=== PATIENT | female | born 1945 | race American Indian/Alaskan Native ===

== ENCOUNTER 2017-06-28 15:23 | Inpatient (IN) | payer MEDICARE, MEDICAID ==
[~2017-06-28] VITALS: Ht 167.6 cm; Wt 77.1 kg
[2017-06-28] MEDS ORDERED: normal saline 1000ml 1,000 ML IV ONE (16:30)
[2017-06-28] MEDS ORDERED: meclizine 12.5mg tablet PO ONE (16:30)
[2017-06-28 17:11] LABS: BASOPHILS % (AUTO) 0.2 % (0-1); EOSINOPHILS # (AUTO) 0.1 X10'3 (0-0.9); EOSINOPHILS % (AUTO) 0.8 % (0-6); HEMATOCRIT 39.3 % (35.0-45.0); HEMOGLOBIN 13.9 g/dl (12.0-16.0); LYMPHOCYTES # (AUTO) 1.4 X10'3 (1.1-4.8); LYMPHOCYTES % (AUTO) 19.7 % (21-51); MEAN CORPUSCULAR HEMOGLOBIN 32.6 PG (27.0-31.0); MEAN CORPUSCULAR HGB CONC 35.3 % (33.0-36.5); MEAN CORPUSCULAR VOLUME 92.2 FL (78-98); MEAN PLATELET VOLUME 9.1 FL (7.4-10.4); MONOCYTES # (AUTO) 0.3 X10'3 (0-0.9); MONOCYTES % (AUTO) 4.9 % (2-12); NEUTROPHILS # (AUTO) 5.2 X10'3 (1.8-7.7); NEUTROPHILS % (AUTO) 74.4 % (42-75); PLATELET COUNT 167 X10'3 (140-440); RED BLOOD COUNT 4.26 X10'6 (4.20-5.60); RED CELL DISTRIBUTION WIDTH 14.1 % (11.5-14.5)
[2017-06-28 17:26] LABS: ALANINE AMINOTRANSFERASE 61 U/L (12-78); ALBUMIN 4.4 G/DL (3.4-5.0); ALBUMIN/GLOBULIN RATIO 1.5 (1.1-1.5); ALKALINE PHOSPHATASE 123 IU/L (46-116); ANION GAP 11 (8-16); ASPARTATE AMINO TRANSFERASE 31 U/L (10-37); BILIRUBIN,TOTAL 0.5 MG/DL (0.1-1.0); BLOOD UREA NITROGEN 10 MG/DL (7-18); CALCIUM 9.7 MG/DL (8.5-10.1); CHLORIDE 101 MMOL/L (99-107); CREATININE 0.83 MG/DL (0.40-0.90); GLUCOSE 111 MG/DL (70-104); POTASSIUM 4.1 MMOL/L (3.5-5.1); SODIUM 138 MMOL/L (135-145); TOTAL CARBON DIOXIDE 25.7 MMOL/L (24-32); TOTAL PROTEIN 7.4 G/DL (6.4-8.2); eGFR 68 ML/MIN
[2017-06-28] MEDS ORDERED: aspirin 325mg tablet PO ONE (18:40)
[2017-06-28] MEDS ORDERED: ASPI-1265 PO ×2 (19:01→19:39)
[2017-06-28] MEDS ORDERED: CYAN100T12 PO (19:42)
[2017-06-28] MEDS ORDERED: normal saline 1000ml 1,000 ML IVB ONE (19:51)
[2017-06-28] MEDS ORDERED: HYDROcodone/acetaminophen 10/325mg tab PO PRN (19:55)
[2017-06-28] MEDS ORDERED: acetaminophen 325mg tablet PO PRN ×2 (19:55)
[2017-06-28] MEDS ORDERED: metoclopramide 5 mg/ml inj IV PRN (19:55)
[2017-06-28] MEDS ORDERED: bisacodyl 10mg suppository rectal RC PRN (19:55)
[2017-06-28] MEDS ORDERED: morphine 2 MG/ML inj. syringe IV PRN ×2 (19:55)
[2017-06-28] MEDS ORDERED: HYDROmorphone inj. 0.5 MG/0.5 ML DISP.SYRIN IV PRN ×2 (19:55)
[2017-06-28] MEDS ORDERED: magnesium hydroxide 30ml (MOM) UD suspension PO PRN (19:55)
[2017-06-28] MEDS ORDERED: HYDROcodone/acetaminophen 5mg/325mg tablet PO PRN (19:55)
[2017-06-28] MEDS ORDERED: ondansetron/PF 4mg/2ml inj IV PRN (19:55)
[2017-06-28] MEDS ORDERED: mag hydrox/Alum hydrox/simeth 30ml oral suspension PO PRN (19:55)
[2017-06-28] MEDS ORDERED: diphenhydrAMINE 50 mg/ml inj IV PRN (19:55)
[2017-06-28] MEDS: normal saline 1000ml 1,000 ML IV SCH ×2 (20:22→21:48)
[2017-06-28 20:38] LABS: D-DIMER 0.22 MG/L FEU (0-0.50); PARTIAL THROMBOPLASTIN TIME 28 SECONDS (22-32); PROTHROMBIN TIME 10.2 SECONDS (9.0-12.0)
[2017-06-28] MEDS: heparin, porcine 5000 units/ml vial SQ SCH (20:53)
[2017-06-28 20:59] LABS: HEMOGLOBIN A1C 5.8 % (4.5-6.2)
[2017-06-28 20:59] LABS: CLARITY,URINE SLIGHTLY CLOUDY (Clear); COLOR,URINE YELLOW (Yellow); GLUCOSE, URINE NEGATIVE (Neg); KETONES,URINE NEGATIVE (Neg); LEUKOCYTE ESTERASE ,URINE LARGE (Neg); NITRITES, URINE NEGATIVE (Neg); OCCULT BLOOD,URINE NEGATIVE (Neg); PROTEIN,URINE NEGATIVE (Neg); UROBILINOGEN,URINE 0.2 E.U/dL (0.2-1.0)
[2017-06-28] MEDS ORDERED: temazepam 15mg capsule PO PRN (21:00)
[2017-06-28 21:03] LABS: LIPASE 97 U/L (73-393); MAGNESIUM 2.1 MG/DL (1.5-2.4); PHOSPHORUS 3.4 MG/DL (2.3-4.5)
[2017-06-28 21:04] LABS: UA COLLECTION TYPE CLN CATCH MIDSTREAM
[2017-06-28 21:06] LABS: URINE AMPHETAMINE SCREEN NEGATIVE (Neg); URINE BARBITUATE SCREEN NEGATIVE (Neg); URINE BENZODIAZEPINES SCREEN NEGATIVE (Neg); URINE CANNABINOID SCREEN NEGATIVE (Neg); URINE COCAINE SCREEN NEGATIVE (Neg); URINE METHADONE SCREEN NEGATIVE (Neg); URINE OPIATE SCREEN NEGATIVE (Neg); URINE PHENCYCLIDINE SCREEN NEGATIVE (Neg)
[2017-06-28 21:15] LABS: SQUAMOUS EPITHELIAL CELL,UR MANY /LPF (FEW)
[2017-06-28 21:16] LABS: BACTERIA,URINE 2+ /HPF (Neg); RBC,URINE 0-2 /HPF (0-2); WBC,URINE 30-50 /HPF (0-4)
[2017-06-28 21:30] VITALS: BP 146/59
[2017-06-28] MEDS: docusate sod 100mg capsule PO SCH (21:47)
[2017-06-28] MEDS ORDERED: CefTRIAXone 2gm/NS 100ml IVPB 100 ML IV ONE (23:30)
[2017-06-29 05:21] LABS: CLARITY,URINE CLEAR (Clear); COLOR,URINE YELLOW (Yellow); GLUCOSE, URINE NEGATIVE (Neg); KETONES,URINE NEGATIVE (Neg); LEUKOCYTE ESTERASE ,URINE SMALL (Neg); NITRITES, URINE NEGATIVE (Neg); OCCULT BLOOD,URINE NEGATIVE (Neg); PH,URINE 6.5 (4.8-8.0); PROTEIN,URINE NEGATIVE (Neg); UROBILINOGEN,URINE 0.2 E.U/dL (0.2-1.0)
[2017-06-29 05:22] LABS: BASOPHILS % (AUTO) 0.3 % (0-1); EOSINOPHILS % (AUTO) 0.4 % (0-6); HEMATOCRIT 36.4 % (35.0-45.0); HEMOGLOBIN 12.6 g/dl (12.0-16.0); LYMPHOCYTES # (AUTO) 1.9 X10'3 (1.1-4.8); LYMPHOCYTES % (AUTO) 43.6 % (21-51); MEAN CORPUSCULAR HEMOGLOBIN 32.4 PG (27.0-31.0); MEAN CORPUSCULAR HGB CONC 34.7 % (33.0-36.5); MEAN CORPUSCULAR VOLUME 93.5 FL (78-98); MEAN PLATELET VOLUME 9.6 FL (7.4-10.4); MONOCYTES # (AUTO) 0.4 X10'3 (0-0.9); MONOCYTES % (AUTO) 9.4 % (2-12); NEUTROPHILS % (AUTO) 46.3 % (42-75); PLATELET COUNT 165 X10'3 (140-440); RED BLOOD COUNT 3.89 X10'6 (4.20-5.60); RED CELL DISTRIBUTION WIDTH 14.5 % (11.5-14.5); WHITE BLOOD COUNT 4.3 X10'3 (4.5-11.0)
[2017-06-29 05:38] LABS: UA COLLECTION TYPE VOIDED
[2017-06-29 05:48] LABS: BACTERIA,URINE FEW /HPF (Neg); RBC,URINE 0-2 /HPF (0-2); SQUAMOUS EPITHELIAL CELL,UR FEW /LPF (FEW); WBC,URINE 0-4 /HPF (0-4)
[2017-06-29 06:00] VITALS: BP 137/65
[2017-06-29 06:32] LABS: ALANINE AMINOTRANSFERASE 51 U/L (12-78); ALBUMIN 3.4 G/DL (3.4-5.0); ALBUMIN/GLOBULIN RATIO 1.2 (1.1-1.5); ALKALINE PHOSPHATASE 106 IU/L (46-116); ANION GAP 10 (8-16); ASPARTATE AMINO TRANSFERASE 27 U/L (10-37); BILIRUBIN,TOTAL 0.4 MG/DL (0.1-1.0); BLOOD UREA NITROGEN 8 MG/DL (7-18); BUN/CREATININE RATIO 9.5 (6.6-38.0); CALCIUM 8.7 MG/DL (8.5-10.1); CHLORIDE 110 MMOL/L (99-107); CHOL/HDL RATIO 7.5 (0.00-4.99); CHOLESTEROL 231 MG/DL (0-200); CREATININE 0.84 MG/DL (0.40-0.90); GLUCOSE 106 MG/DL (70-104); HDL CHOLESTEROL 31 MG/DL (35-60); LDL CHOLESTEROL 143 MG/DL (50-100); SODIUM 144 MMOL/L (135-145); TOTAL CARBON DIOXIDE 24.3 MMOL/L (24-32); TOTAL PROTEIN 6.3 G/DL (6.4-8.2); TRIGLYCERIDES 278 MG/DL (20-135); eGFR 67 ML/MIN
[2017-06-29] MEDS: lisinopril 10 MG tablet PO SCH (07:19)
[2017-06-29] MEDS: aspirin 81mg tab.chew PO SCH (07:19)
[2017-06-29] MEDS: heparin, porcine 5000 units/ml vial SQ SCH ×2 (07:21→20:21)
[2017-06-29] MEDS: docusate sod 100mg capsule PO SCH ×2 (07:25→20:00)
[2017-06-29 10:00] VITALS: BP_SYST 133; BP_SYST 140; BP_SYST 148; BP_DIAS 63; BP_DIAS 64
[2017-06-29] MEDS: normal saline 1000ml 1,000 ML IV SCH ×2 (10:09→23:58)
[2017-06-29] MEDS ORDERED: iohexol 350MG/ML 100ml bottle IV ONE (17:05)
[2017-06-29] MEDS: cyanocobalamin 500mcg tablet PO SCH (17:47)
[2017-06-29 18:00] VITALS: BP 137/64
[2017-06-29 20:00] VITALS: BP_SYST 146; BP_SYST 164; BP_SYST 182; BP_DIAS 62; BP_DIAS 72; BP_DIAS 76
[2017-06-29 22:00] VITALS: BP 164/62
[2017-06-30 05:00] VITALS: BP 125/59
[2017-06-30 06:23] LABS: BASOPHILS % (AUTO) 0.1 % (0-1); EOSINOPHILS % (AUTO) 0.3 % (0-6); HEMOGLOBIN 12.7 g/dl (12.0-16.0); LYMPHOCYTES # (AUTO) 1.9 X10'3 (1.1-4.8); LYMPHOCYTES % (AUTO) 53.1 % (21-51); MEAN CORPUSCULAR HEMOGLOBIN 32.4 PG (27.0-31.0); MEAN CORPUSCULAR HGB CONC 35.2 % (33.0-36.5); MEAN PLATELET VOLUME 9.8 FL (7.4-10.4); MONOCYTES # (AUTO) 0.3 X10'3 (0-0.9); MONOCYTES % (AUTO) 8.7 % (2-12); NEUTROPHILS # (AUTO) 1.3 X10'3 (1.8-7.7); NEUTROPHILS % (AUTO) 37.8 % (42-75); PLATELET COUNT 147 X10'3 (140-440); RED BLOOD COUNT 3.92 X10'6 (4.20-5.60); RED CELL DISTRIBUTION WIDTH 14.4 % (11.5-14.5); WHITE BLOOD COUNT 3.6 X10'3 (4.5-11.0)
[2017-06-30 07:19] LABS: ALANINE AMINOTRANSFERASE 49 U/L (12-78); ALBUMIN 3.3 G/DL (3.4-5.0); ALBUMIN/GLOBULIN RATIO 1.1 (1.1-1.5); ALKALINE PHOSPHATASE 105 IU/L (46-116); ANION GAP 11 (8-16); ASPARTATE AMINO TRANSFERASE 25 U/L (10-37); BILIRUBIN,TOTAL 0.3 MG/DL (0.1-1.0); BLOOD UREA NITROGEN 10 MG/DL (7-18); BUN/CREATININE RATIO 11.8 (6.6-38.0); CALCIUM 8.9 MG/DL (8.5-10.1); CHLORIDE 108 MMOL/L (99-107); CREATININE 0.85 MG/DL (0.40-0.90); GLUCOSE 107 MG/DL (70-104); POTASSIUM 3.7 MMOL/L (3.5-5.1); SODIUM 145 MMOL/L (135-145); TOTAL CARBON DIOXIDE 25.9 MMOL/L (24-32); TOTAL PROTEIN 6.2 G/DL (6.4-8.2); eGFR 66 ML/MIN
[2017-06-30] MEDS: aspirin 81mg tab.chew PO SCH (07:58)
[2017-06-30] MEDS: lisinopril 10 MG tablet PO SCH (07:58)
[2017-06-30] MEDS: heparin, porcine 5000 units/ml vial SQ SCH (07:58)
[2017-06-30] MEDS: cyanocobalamin 500mcg tablet PO SCH (07:58)
[2017-06-30 07:59] VITALS: BP 145/69
[2017-06-30] MEDS: docusate sod 100mg capsule PO SCH (07:59)
[2017-06-30] MEDS: normal saline 1000ml 1,000 ML IV SCH (08:00)
[2017-06-30 10:00] VITALS: BP 137/62
[2017-06-30] MEDS ORDERED: pneumococcal 23-VAL P-sac vacc 25 mcg/0.5ml vial IMVAC ONE (10:00)
[2017-06-30 10:15] VITALS: BP_SYST 117; BP_SYST 132; BP_DIAS 59; BP_DIAS 62
[2017-06-30 10:17] VITALS: BP 143/68
[2017-06-30] MEDS ORDERED: LISI10TA4 PO (14:01)
[2017-06-30] MEDS ORDERED: ATOR40TA PO (14:01)
[2017-06-30] MEDS ORDERED: ASPI-1265 PO (14:01)
[2017-06-30] MEDS ORDERED: CIPR-230 PO (14:23)
== END 2017-06-30 15:19 | disposition home or self-care (01) | DRG 312 ==
LOC: ER 15:24 → ED HOLD 19:52 → ORTHO 4S 21:10
PROVIDERS: ADMIT Family Medicine; ATTEND Internal Medicine
PROC: B3251ZZ Computerized Tomography (CT Scan) of Bilateral Common Carotid Arteries using Low Osmolar Contrast (ICD-10-PCS; principal; 2017-06-29)
PROC: B32G1ZZ Computerized Tomography (CT Scan) of Bilateral Vertebral Arteries using Low Osmolar Contrast (ICD-10-PCS; 2017-06-29)
PROC: B3281ZZ Computerized Tomography (CT Scan) of Bilateral Internal Carotid Arteries using Low Osmolar Contrast (ICD-10-PCS; 2017-06-29)
DX: R55 Syncope and collapse (principal); E86.0 Dehydration; I10 Essential (primary) hypertension; R42 Dizziness and giddiness; R73.03 Prediabetes; Z79.82 Long term (current) use of aspirin; Z79.899 Other long term (current) drug therapy; Z86.73 Personal history of transient ischemic attack (TIA), and cerebral infarction without residual deficits
CPT/HCPCS: 36415; 70450; 70498; 70551; 71045; 80053; 80061; 80305; 81001; 83036; 83690; 83735; 83880; 84100; 84443; 84484; 85025; 85379; 85610; 85730; 87070; 87088; 93005; 93306; 93880; 96360; 99285; J0696; J1644; J7030; J8597; Q9967

== ENCOUNTER 2019-05-26 05:47 | Emergency (ER) | payer MEDICARE, MEDICAID, OTHER ==
[~2019-05-26] VITALS: Ht 167.6 cm; Wt 76.7 kg
[~2019-05-26 05:47] MED LIST: ASPI-1265 PO; ATOR40TA PO; CYAN100T45 PO; LISI10TA4 PO
[2019-05-26 06:17] LABS: CLARITY,URINE CLOUDY (Clear); COLOR,URINE YELLOW (Yellow); GLUCOSE, URINE NEGATIVE (Neg); KETONES,URINE NEGATIVE (Neg); LEUKOCYTE ESTERASE ,URINE MODERATE (Neg); NITRITES, URINE NEGATIVE (Neg); OCCULT BLOOD,URINE NEGATIVE (Neg); PH,URINE 8.5 (4.8-8.0); PROTEIN,URINE NEGATIVE (Neg); UROBILINOGEN,URINE 0.2 E.U/dL (0.2-1.0)
[2019-05-26 06:20] LABS: UA COLLECTION TYPE CLN CATCH MIDSTREAM
[2019-05-26 06:23] LABS: MUCUS STRANDS FEW /LPF (Neg); SQUAMOUS EPITHELIAL CELL,UR MANY /LPF (FEW); WBC,URINE 30-50 /HPF (0-4)
[2019-05-26 06:25] LABS: BACTERIA,URINE 1+ /HPF (Neg); RBC,URINE 0-2 /HPF (0-2); WBC CLUMPS,URINE MODERATE /HPF (NEGATIVE)
[2019-05-26] MEDS ORDERED: normal saline 1000ML IV soln IVB ONE (06:40)
[2019-05-26] MEDS ORDERED: ketorolac tromethamine 15mg/ml inj. IV ONE (06:40)
[2019-05-26] MEDS ORDERED: CefTRIAXone/D5W-Rocephin 1gm 50 ML IV ONE (06:40)
[2019-05-26] MEDS ORDERED: PHEN-824 PO (06:43)
[2019-05-26] MEDS ORDERED: CEPH500C5 PO (06:43)
[2019-05-26] MEDS ORDERED: phenazopyridine 100mg tablet PO ONE (06:45)
[2019-05-26 07:34] LABS: BASOPHILS % (AUTO) 0.5 % (0-1); EOSINOPHILS % (AUTO) 0 % (0-6); HEMATOCRIT 40.3 % (35.0-45.0); HEMOGLOBIN 13.9 g/dl (12.0-16.0); LYMPHOCYTES # (AUTO) 1.7 X10'3 (1.1-4.8); LYMPHOCYTES % (AUTO) 35.2 % (21-51); MEAN CORPUSCULAR HEMOGLOBIN 32.3 PG (27.0-31.0); MEAN CORPUSCULAR HGB CONC 34.4 g/dL (33.0-36.5); MEAN CORPUSCULAR VOLUME 93.8 FL (78-98); MEAN PLATELET VOLUME 10.3 FL (7.4-10.4); MONOCYTES # (AUTO) 0.4 X10'3 (0-0.9); MONOCYTES % (AUTO) 8.1 % (2-12); NEUTROPHILS # (AUTO) 2.8 X10'3 (1.8-7.7); NEUTROPHILS % (AUTO) 56.2 % (42-75); PLATELET COUNT 159 X10'3 (140-440); RED CELL DISTRIBUTION WIDTH 13.7 % (11.5-14.5); WHITE BLOOD COUNT 4.9 X10'3 (4.5-11.0)
[2019-05-26 07:42] LABS: ALANINE AMINOTRANSFERASE 45 U/L (12-78); ALBUMIN 4.2 G/DL (3.4-5.0); ALBUMIN/GLOBULIN RATIO 1.4 (1.1-1.5); ALKALINE PHOSPHATASE 137 IU/L (46-116); ANION GAP 10 (8-16); ASPARTATE AMINO TRANSFERASE 25 U/L (10-37); BILIRUBIN,TOTAL 0.3 MG/DL (0.1-1.0); BLOOD UREA NITROGEN 10 MG/DL (7-18); BUN/CREATININE RATIO 11.5 (6.6-38.0); CALCIUM 9.6 MG/DL (8.5-10.1); CHLORIDE 103 MMOL/L (99-107); CREATININE 0.87 MG/DL (0.40-0.90); GLUCOSE 115 MG/DL (70-104); POTASSIUM 4.3 MMOL/L (3.5-5.1); SODIUM 139 MMOL/L (135-145); TOTAL CARBON DIOXIDE 25.6 MMOL/L (24-32); TOTAL PROTEIN 7.2 G/DL (6.4-8.2); eGFR 64 ML/MIN
[2019-05-26 07:52] VITALS: BP 134/76
== END 2019-05-26 08:45 | disposition home or self-care (01) ==
LOC: ER 05:48
DX: N39.0 Urinary tract infection, site not specified (principal); Z79.82 Long term (current) use of aspirin; Z79.899 Other long term (current) drug therapy
CPT/HCPCS: 36415; 80053; 81001; 85025; 96365; 96375; 99283; J0696; J1885; J7030

== ENCOUNTER 2021-05-13 09:33 | Emergency (ER) | payer MEDICARE, MEDICAID ==
[~2021-05-13] VITALS: Ht 165.1 cm; Wt 75.0 kg
[~2021-05-13 09:33] MED LIST changes: +LISI10TA27 PO; -LISI10TA4 PO; +PHEN-824 PO
[2021-05-13] MEDS ORDERED: CASIRIVIMAB/IMDEVIMAB (REGEN-COV) 600mg/600mg inject. SQ ONE ×4 (09:56→10:00)
[2021-05-13] MEDS ORDERED: dexamethasone 0.5 mg/5ml unit-dose oral solution PO STA (11:12)
[2021-05-13] MEDS ORDERED: DEXAMETHASONE 6 MG TABLET PO STA (11:16)
[2021-05-13 11:43] VITALS: BP 119/63
== END 2021-05-13 11:40 | disposition home or self-care (01) ==
LOC: ER 09:33
DX: U07.1 COVID-19 (principal); R52 Pain, unspecified; Z87.440 Personal history of urinary (tract) infections; Z79.82 Long term (current) use of aspirin; Z79.899 Other long term (current) drug therapy
CPT/HCPCS: 71045; 99285; M0243; Q0244; 99284; J8540

== ENCOUNTER 2021-05-18 06:25 | Emergency (ER) | payer MEDICARE, MEDICAID ==
[~2021-05-18] VITALS: Ht 167.6 cm; Wt 72.7 kg
[2021-05-18 06:43] VITALS: BP 141/63
[2021-05-18] MEDS ORDERED: dexmedetomidine 200mcg/2ml inj. IV ONE (06:59)
[2021-05-18] MEDS ORDERED: DEXA6TAB6 PO ×2 (07:29→08:41)
[2021-05-18] MEDS ORDERED: DEXAMETHASONE 6 MG TABLET PO ONE (07:30)
[2021-05-18] MEDS ORDERED: dexamethasone 4mg tablet PO ONE (07:30)
[2021-05-19] MEDS ORDERED: DEXA6TAB PO (18:20)
== END 2021-05-18 08:49 | disposition home or self-care (01) ==
LOC: ER 06:26
DX: U07.1 COVID-19 (principal); J12.82 Pneumonia due to coronavirus disease 2019; R05.9 Cough, unspecified; R50.9 Fever, unspecified; R43.8 Other disturbances of smell and taste; Z87.440 Personal history of urinary (tract) infections; Z98.890 Other specified postprocedural states; Z79.899 Other long term (current) drug therapy
CPT/HCPCS: 71045; 87635; 93005; 99285; C9803; J3490; J8540

== ENCOUNTER 2021-05-19 16:50 | Inpatient (IN) | payer MEDICARE, OTHER ==
[~2021-05-19] VITALS: Ht 167.6 cm; Wt 76.0 kg
[~2021-05-19 16:50] MED LIST changes: -ASPI-1265 PO; -ATOR40TA PO; -CYAN100T45 PO; +DEXA6TAB6 PO; -LISI10TA27 PO; -PHEN-824 PO
[2021-05-19] MEDS ORDERED: dexamethasone sod phosphate 10mg/ml inj IV STA (17:30)
[2021-05-19 17:45] LABS: BASOPHILS % (AUTO) 0.1 % (0-1); EOSINOPHILS % (AUTO) 0 % (0-6); HEMATOCRIT 34.9 % (35.0-45.0); HEMOGLOBIN 12.1 g/dl (12.0-16.0); LYMPHOCYTES # (AUTO) 0.5 X10'3 (1.1-4.8); LYMPHOCYTES % (AUTO) 3.4 % (21-51); MEAN CORPUSCULAR HEMOGLOBIN 31.6 PG (27.0-31.0); MEAN CORPUSCULAR HGB CONC 34.7 g/dL (33.0-36.5); MEAN CORPUSCULAR VOLUME 91.1 FL (78-98); MEAN PLATELET VOLUME 9.5 FL (7.4-10.4); MONOCYTES # (AUTO) 0.5 X10'3 (0-0.9); MONOCYTES % (AUTO) 3.4 % (2-12); NEUTROPHILS # (AUTO) 14.6 X10'3 (1.8-7.7); NEUTROPHILS % (AUTO) 93.1 % (42-75); PLATELET COUNT 208 X10'3 (140-440); RED BLOOD COUNT 3.83 X10'6 (4.20-5.60); RED CELL DISTRIBUTION WIDTH 13.4 % (11.5-14.5); WHITE BLOOD COUNT 15.7 X10'3 (4.5-11.0)
[2021-05-19 18:06] LABS: ALANINE AMINOTRANSFERASE 37 U/L (12-78); ALBUMIN 3.2 G/DL (3.4-5.0); ALBUMIN/GLOBULIN RATIO 0.8 (1.1-1.5); ALKALINE PHOSPHATASE 105 IU/L (46-116); ANION GAP 8 (8-16); ASPARTATE AMINO TRANSFERASE 24 U/L (10-37); BILIRUBIN,TOTAL 0.4 MG/DL (0.1-1.0); BLOOD UREA NITROGEN 14 MG/DL (7-18); BUN/CREATININE RATIO 16.9 (6.6-38.0); C-REACTIVE PROTEIN 12.19 MG/DL (0.0-0.5); CALCIUM 9.8 MG/DL (8.5-10.1); CHLORIDE 88 MMOL/L (99-107); CREATININE 0.83 MG/DL (0.40-0.90); FERRITIN 304 NG/ML (8-252); GLUCOSE 151 MG/DL (70-104); LACTATE DEHYDROGENASE 313 U/L (81-234); POTASSIUM 4.8 MMOL/L (3.5-5.1); TOTAL CARBON DIOXIDE 23.2 MMOL/L (24-32); TOTAL PROTEIN 7.1 G/DL (6.4-8.2); eGFR 67 ML/MIN
[2021-05-19 18:10] LABS: SODIUM 119 MMOL/L (135-145)
[2021-05-19] MEDS ORDERED: DEXA6TAB PO (18:20)
[2021-05-19] MEDS ORDERED: mag hydrox/Alum hydrox/simeth 30ml oral suspension PO PRN (18:35)
[2021-05-19] MEDS ORDERED: REMDESIVIR INJ 200 MG in normal saline 100ml IV soln 100 ML IV ONE ×2 (18:35→19:30)
[2021-05-19] MEDS ORDERED: ALBUTEROL INHALER 1 PUFF/90 MCG INHALER IH PRN (18:35)
[2021-05-19] MEDS ORDERED: potassium CL 10mEq/100ml bag 100 ML IV PRN (18:35)
[2021-05-19] MEDS ORDERED: magnesium 4gm in 100ml NS 100 ML IV PRN (18:35)
[2021-05-19] MEDS ORDERED: acetaminophen 325mg tablet PO PRN (18:35)
[2021-05-19] MEDS ORDERED: magnesium 2GM in 50ml NS 50 ML IV PRN (18:35)
[2021-05-19] MEDS ORDERED: potassium Cl 20 mEq SR tablet PO PRN ×2 (18:35)
[2021-05-19 19:05] LABS: D-DIMER 0.32 MG/L FEU (0-0.50)
--- NOTE | 2021-05-19 19:30 | NUR ---
Placed in room 12.
[2021-05-19] MEDS: docusate sod 100mg capsule PO SCH (20:00)
[2021-05-19] MEDS ORDERED: enoxaparin 40mg/0.4ml syringe SQ SCH (20:00)
--- NOTE | 2021-05-19 21:25 | NUR ---
Report given to PATIENCE Ferraro.
[2021-05-19 22:00] VITALS: BP 166/72
[2021-05-19] MEDS: normal saline 1000ml 1,000 ML IV SCH (22:05)
[2021-05-19] MEDS: K and/or MAG REPLACEMENT MC SCH (23:00)
[2021-05-19] MEDS: guaiFENesin/codeine phos 10ml UD oral syrup PO PRN (23:32)
[2021-05-19] MEDS: ondansetron/PF 4mg/2ml inj IV PRN (23:42)
[2021-05-19] MEDS: dexamethasone inj 6 MG in dextrose 5%-water 100 ML IV SCH (23:47)
[2021-05-20 02:00] VITALS: BP 135/63
--- NOTE | 2021-05-20 02:44 | NUR ---
pt used her call light for help to the bathroom and by the time I had gowned up she ambulated to the BR on her own without oxygen and was coughing quite a bit and winded with breathing. I applied portable oxygen on her and educated her to not get up to the bathroom or anywhere without oxygen and that she needs to use the bsc to conserve her strength and oxygen demand.
[2021-05-20 06:00] VITALS: BP 130/59
--- NOTE | 2021-05-20 06:30 | NUR ---
Change of shift report given to Nithya MORIN Addendum: 05/20/21 at 0635 by Jasmine Conti RN Amended: Links added.
[2021-05-20] MEDS: K and/or MAG REPLACEMENT MC SCH ×2 (08:00→19:43)
[2021-05-20 08:12] LABS: BASOPHILS % (AUTO) 0 % (0-1); EOSINOPHILS % (AUTO) 0 % (0-6); HEMATOCRIT 36.4 % (35.0-45.0); HEMOGLOBIN 12.6 g/dl (12.0-16.0); LYMPHOCYTES # (AUTO) 0.5 X10'3 (1.1-4.8); LYMPHOCYTES % (AUTO) 3.3 % (21-51); MEAN CORPUSCULAR HEMOGLOBIN 31.8 PG (27.0-31.0); MEAN CORPUSCULAR HGB CONC 34.6 g/dL (33.0-36.5); MEAN CORPUSCULAR VOLUME 91.9 FL (78-98); MEAN PLATELET VOLUME 9.5 FL (7.4-10.4); MONOCYTES # (AUTO) 0.6 X10'3 (0-0.9); NEUTROPHILS # (AUTO) 13.2 X10'3 (1.8-7.7); NEUTROPHILS % (AUTO) 92.7 % (42-75); PLATELET COUNT 224 X10'3 (140-440); RED BLOOD COUNT 3.96 X10'6 (4.20-5.60); RED CELL DISTRIBUTION WIDTH 13.3 % (11.5-14.5); WHITE BLOOD COUNT 14.3 X10'3 (4.5-11.0)
[2021-05-20] MEDS: REMDESIVIR INJ 100 MG in normal saline 100ml IV soln 100 ML IV SCH (08:29)
[2021-05-20] MEDS: enoxaparin 40mg/0.4ml syringe SQ SCH (08:30)
[2021-05-20] MEDS: dexamethasone inj 6 MG in dextrose 5%-water 100 ML IV SCH ×2 (08:30→20:31)
[2021-05-20] MEDS: docusate sod 100mg capsule PO SCH ×2 (08:32→20:31)
[2021-05-20 09:09] LABS: ALANINE AMINOTRANSFERASE 35 U/L (12-78); ALBUMIN 2.9 G/DL (3.4-5.0); ALBUMIN/GLOBULIN RATIO 0.8 (1.1-1.5); ALKALINE PHOSPHATASE 94 IU/L (46-116); ANION GAP 8 (8-16); ASPARTATE AMINO TRANSFERASE 28 U/L (10-37); BILIRUBIN,TOTAL 0.4 MG/DL (0.1-1.0); BLOOD UREA NITROGEN 12 MG/DL (7-18); BUN/CREATININE RATIO 15.6 (6.6-38.0); CALCIUM 9.4 MG/DL (8.5-10.1); CHLORIDE 96 MMOL/L (99-107); CREATININE 0.77 MG/DL (0.40-0.90); GLUCOSE 124 MG/DL (70-104); MAGNESIUM 2.1 MG/DL (1.5-2.4); POTASSIUM 4.7 MMOL/L (3.5-5.1); SODIUM 129 MMOL/L (135-145); TOTAL CARBON DIOXIDE 24.6 MMOL/L (24-32); TOTAL PROTEIN 6.6 G/DL (6.4-8.2); eGFR 73 ML/MIN
[2021-05-20 10:00] VITALS: BP 130/61
[2021-05-20] MEDS: normal saline 1000ml 1,000 ML IV SCH ×3 (12:34→22:40)
[2021-05-20] MEDS: guaiFENesin/codeine phos 10ml UD oral syrup PO PRN (16:46)
[2021-05-20 18:00] VITALS: BP 136/61
[2021-05-20 20:19] LABS: D-DIMER 0.32 MG/L FEU (0-0.50)
[2021-05-20] MEDS: LORazepam 0.5 MG tablet PO PRN (21:18)
[2021-05-20 22:00] VITALS: BP 120/60
[2021-05-21 02:00] VITALS: BP 126/66
[2021-05-21] MEDS: guaiFENesin/codeine phos 10ml UD oral syrup PO PRN ×2 (02:13→19:55)
--- NOTE | 2021-05-21 02:34 | NUR ---
Patient was not compensating after using the bsc and having a coughing fit. She was 82-83% on 10 liters high flow so I increased her in increments up to 15 liters high flow oxygen and then had to add 15 liters NRB mask and now her oxygen saturation is 93%.
--- NOTE | 2021-05-21 02:41 | NUR ---
I called Dr. Alston to inform him that I had to increase pt's oxygen from 10 liters high flow to 15 liters high flow and then also added a 15 liters NRB mask to get her from 82% to 90-93% spo2. Will also notify RT.
--- NOTE | 2021-05-21 05:30 | NUR ---
O2 sats 92%-94% on 15L high flow and 15L NRB while resting. Highest is 94% briefly but mostly at 92%
[2021-05-21 06:00] VITALS: BP 135/63
--- NOTE | 2021-05-21 06:43 | NUR ---
Change of shift report given to Marisela MORIN Addendum: 05/21/21 at 0644 by Jasmine Conti RN Amended: Links added.
--- NOTE | 2021-05-21 06:57 | NUR ---
Patient in room [facility] 4020A. I have received report from PATIENCE MOREIRA and had the opportunity to ask questions and assume patient care.
[2021-05-21] MEDS: dexamethasone inj 6 MG in dextrose 5%-water 100 ML IV SCH ×2 (07:45→19:54)
[2021-05-21] MEDS: docusate sod 100mg capsule PO SCH ×2 (07:48→19:54)
[2021-05-21] MEDS: enoxaparin 40mg/0.4ml syringe SQ SCH (07:49)
[2021-05-21] MEDS: REMDESIVIR INJ 100 MG in normal saline 100ml IV soln 100 ML IV SCH (07:51)
[2021-05-21 07:59] LABS: BASOPHILS % (AUTO) 0 % (0-1); EOSINOPHILS % (AUTO) 0 % (0-6); HEMATOCRIT 35.3 % (35.0-45.0); HEMOGLOBIN 11.9 g/dl (12.0-16.0); LYMPHOCYTES # (AUTO) 0.7 X10'3 (1.1-4.8); LYMPHOCYTES % (AUTO) 5.6 % (21-51); MEAN CORPUSCULAR HEMOGLOBIN 31.4 PG (27.0-31.0); MEAN CORPUSCULAR HGB CONC 33.6 g/dL (33.0-36.5); MEAN CORPUSCULAR VOLUME 93.4 FL (78-98); MEAN PLATELET VOLUME 9.5 FL (7.4-10.4); MONOCYTES # (AUTO) 0.5 X10'3 (0-0.9); MONOCYTES % (AUTO) 4.4 % (2-12); NEUTROPHILS # (AUTO) 11.2 X10'3 (1.8-7.7); PLATELET COUNT 228 X10'3 (140-440); RED BLOOD COUNT 3.78 X10'6 (4.20-5.60); RED CELL DISTRIBUTION WIDTH 13.9 % (11.5-14.5); WHITE BLOOD COUNT 12.5 X10'3 (4.5-11.0)
[2021-05-21] MEDS: K and/or MAG REPLACEMENT MC SCH ×2 (08:00→20:00)
[2021-05-21 08:06] LABS: D-DIMER 0.49 MG/L FEU (0-0.50)
[2021-05-21 08:14] LABS: ALANINE AMINOTRANSFERASE 33 U/L (12-78); ALBUMIN 2.5 G/DL (3.4-5.0); ALBUMIN/GLOBULIN RATIO 0.7 (1.1-1.5); ALKALINE PHOSPHATASE 85 IU/L (46-116); ANION GAP 6 (8-16); ASPARTATE AMINO TRANSFERASE 22 U/L (10-37); BILIRUBIN,TOTAL 0.3 MG/DL (0.1-1.0); BLOOD UREA NITROGEN 14 MG/DL (7-18); BUN/CREATININE RATIO 20.6 (6.6-38.0); C-REACTIVE PROTEIN 10.36 MG/DL (0.0-0.5); CALCIUM 8.8 MG/DL (8.5-10.1); CHLORIDE 104 MMOL/L (99-107); CREATININE 0.68 MG/DL (0.40-0.90); GLUCOSE 124 MG/DL (70-104); MAGNESIUM 2.3 MG/DL (1.5-2.4); POTASSIUM 4.6 MMOL/L (3.5-5.1); SODIUM 135 MMOL/L (135-145); TOTAL CARBON DIOXIDE 24.9 MMOL/L (24-32); TOTAL PROTEIN 6.3 G/DL (6.4-8.2); eGFR 84 ML/MIN
[2021-05-21 10:00] VITALS: BP 144/63
[2021-05-21] MEDS: normal saline 1000ml 1,000 ML IV SCH ×2 (11:18→20:49)
[2021-05-21 14:00] VITALS: BP 154/72
[2021-05-21 18:00] VITALS: BP 135/63
--- NOTE | 2021-05-21 18:30 | NUR ---
Pt in bed awake alert and oriented, denied any discomfort. pt encouraged to keep oxygen on at all time; pt verbalized understanding. IV fluid infusing well. continuous oxygen monitoring in progress.
--- NOTE | 2021-05-21 18:45 | NUR ---
Problems reprioritized. Patient report given, questions answered & plan of care reviewed with PATIENCE Gómez.
[2021-05-21] MEDS: LORazepam 0.5 MG tablet PO PRN (19:56)
[2021-05-21] MEDS: magnesium hydroxide 30ml (MOM) UD suspension PO PRN (20:05)
[2021-05-21 22:00] VITALS: BP 161/76
--- NOTE | 2021-05-21 22:00 | NUR ---
Pt placed on bedpan and voided good amount of urine, pt encouraged to call for assistance as needed when feeling the urge to void
[2021-05-22] MEDS: guaiFENesin/codeine phos 10ml UD oral syrup PO PRN (00:32)
[2021-05-22 02:00] VITALS: BP 156/69
--- NOTE | 2021-05-22 02:00 | NUR ---
Pt desaturating at time;o2 sat 88%. Frequent rounding in progress NRM in use. dried flow not wet.
[2021-05-22] MEDS: normal saline 1000ml 1,000 ML IV SCH ×2 (05:20→19:02)
[2021-05-22 06:00] VITALS: BP 156/73
--- NOTE | 2021-05-22 06:35 | NUR ---
Patient in room [facility]TH[facility] 4022A. I have received report from PATIENCE Gómez and had the opportunity to ask questions and assume patient care.
[2021-05-22 07:55] LABS: BASOPHILS % (AUTO) 0 % (0-1); EOSINOPHILS % (AUTO) 0 % (0-6); HEMATOCRIT 37.8 % (35.0-45.0); LYMPHOCYTES # (AUTO) 0.8 X10'3 (1.1-4.8); LYMPHOCYTES % (AUTO) 6.2 % (21-51); MEAN CORPUSCULAR HEMOGLOBIN 31.8 PG (27.0-31.0); MEAN CORPUSCULAR HGB CONC 34.3 g/dL (33.0-36.5); MEAN CORPUSCULAR VOLUME 92.7 FL (78-98); MEAN PLATELET VOLUME 8.8 FL (7.4-10.4); MONOCYTES # (AUTO) 0.3 X10'3 (0-0.9); MONOCYTES % (AUTO) 2.2 % (2-12); NEUTROPHILS # (AUTO) 11.4 X10'3 (1.8-7.7); NEUTROPHILS % (AUTO) 91.6 % (42-75); PLATELET COUNT 245 X10'3 (140-440); RED BLOOD COUNT 4.07 X10'6 (4.20-5.60); RED CELL DISTRIBUTION WIDTH 13.7 % (11.5-14.5); WHITE BLOOD COUNT 12.4 X10'3 (4.5-11.0)
[2021-05-22] MEDS: K and/or MAG REPLACEMENT MC SCH ×2 (08:00→19:03)
[2021-05-22 08:12] LABS: D-DIMER 2.39 MG/L FEU (0-0.50)
[2021-05-22 08:51] LABS: ALBUMIN 2.5 G/DL (3.4-5.0); ANION GAP 8 (8-16); BILIRUBIN,TOTAL 0.5 MG/DL (0.1-1.0); BLOOD UREA NITROGEN 12 MG/DL (7-18); BUN/CREATININE RATIO 18.2 (6.6-38.0); C-REACTIVE PROTEIN 12.23 MG/DL (0.0-0.5); CALCIUM 8.9 MG/DL (8.5-10.1); CHLORIDE 100 MMOL/L (99-107); CREATININE 0.66 MG/DL (0.40-0.90); GLUCOSE 112 MG/DL (70-104); MAGNESIUM 2.3 MG/DL (1.5-2.4); SODIUM 134 MMOL/L (135-145); TOTAL CARBON DIOXIDE 26.2 MMOL/L (24-32); TOTAL PROTEIN 6.5 G/DL (6.4-8.2); eGFR 87 ML/MIN
[2021-05-22 08:52] LABS: ALANINE AMINOTRANSFERASE 30 U/L (12-78); ALBUMIN/GLOBULIN RATIO 0.6 (1.1-1.5); ALKALINE PHOSPHATASE 89 IU/L (46-116)
[2021-05-22 08:53] LABS: ASPARTATE AMINO TRANSFERASE 33 U/L (10-37); POTASSIUM 4.8 MMOL/L (3.5-5.1)
[2021-05-22] MEDS: dexamethasone inj 6 MG in dextrose 5%-water 100 ML IV SCH ×2 (09:47→19:03)
[2021-05-22] MEDS: benzonatate 100mg capsule PO PRN (09:48)
[2021-05-22] MEDS: enoxaparin 40mg/0.4ml syringe SQ SCH ×2 (09:49→19:04)
[2021-05-22] MEDS: docusate sod 100mg capsule PO SCH ×2 (09:49→19:03)
[2021-05-22] MEDS: REMDESIVIR INJ 100 MG in normal saline 100ml IV soln 100 ML IV SCH (09:51)
[2021-05-22 10:00] VITALS: BP 155/68
[2021-05-22] MEDS ORDERED: NORMAL SALINE IV ONE (13:00)
[2021-05-22] MEDS ORDERED: TOCILIZUMAB IV ONE (13:00)
[2021-05-22 18:00] VITALS: BP 109/83
--- NOTE | 2021-05-22 18:41 | NUR ---
CRYSTAL THOMAS FOR THE 2ND TIME REQUESTING STAT ABG Addendum: 05/23/21 at 0616 by Marisela Scruggs RN WRONG PT
[2021-05-22] MEDS: ondansetron/PF 4mg/2ml inj IV PRN (19:23)
[2021-05-22 22:00] VITALS: BP 117/78
[2021-05-23 02:00] VITALS: BP 137/75
[2021-05-23] MEDS: normal saline 1000ml 1,000 ML IV SCH ×3 (02:40→22:40)
[2021-05-23 06:00] VITALS: BP 145/68
--- NOTE | 2021-05-23 06:33 | NUR ---
Patient in room [facility]TH[facility] 4022A. I have received report from PATIENCE DAVIDSON and had the opportunity to ask questions and assume patient care.
[2021-05-23] MEDS: dexamethasone inj 6 MG in dextrose 5%-water 100 ML IV SCH ×2 (07:52→21:27)
[2021-05-23] MEDS: K and/or MAG REPLACEMENT MC SCH ×2 (08:00→20:00)
[2021-05-23] MEDS: lactose-reduced food (Ensure Enlive) - 237ml bottle PO SCH ×3 (08:00→18:00)
[2021-05-23 08:21] LABS: BASOPHILS % (AUTO) 0.1 % (0-1); EOSINOPHILS % (AUTO) 0 % (0-6); HEMATOCRIT 38.5 % (35.0-45.0); HEMOGLOBIN 13.1 g/dl (12.0-16.0); LYMPHOCYTES # (AUTO) 0.7 X10'3 (1.1-4.8); MEAN CORPUSCULAR HEMOGLOBIN 31.5 PG (27.0-31.0); MEAN CORPUSCULAR VOLUME 92.7 FL (78-98); MEAN PLATELET VOLUME 8.6 FL (7.4-10.4); MONOCYTES # (AUTO) 0.1 X10'3 (0-0.9); MONOCYTES % (AUTO) 1.6 % (2-12); NEUTROPHILS % (AUTO) 89.3 % (42-75); PLATELET COUNT 225 X10'3 (140-440); RED BLOOD COUNT 4.15 X10'6 (4.20-5.60); RED CELL DISTRIBUTION WIDTH 13.5 % (11.5-14.5); WHITE BLOOD COUNT 7.8 X10'3 (4.5-11.0)
[2021-05-23 08:48] LABS: ALANINE AMINOTRANSFERASE 31 U/L (12-78); ALBUMIN 2.3 G/DL (3.4-5.0); ALBUMIN/GLOBULIN RATIO 0.7 (1.1-1.5); ALKALINE PHOSPHATASE 83 IU/L (46-116); ANION GAP 10 (8-16); ASPARTATE AMINO TRANSFERASE 33 U/L (10-37); BILIRUBIN,TOTAL 0.3 MG/DL (0.1-1.0); BLOOD UREA NITROGEN 15 MG/DL (7-18); BUN/CREATININE RATIO 21.1 (6.6-38.0); C-REACTIVE PROTEIN 23.29 MG/DL (0.0-0.5); CALCIUM 8.9 MG/DL (8.5-10.1); CHLORIDE 99 MMOL/L (99-107); CREATININE 0.71 MG/DL (0.40-0.90); GLUCOSE 128 MG/DL (70-104); MAGNESIUM 2.2 MG/DL (1.5-2.4); POTASSIUM 4.4 MMOL/L (3.5-5.1); SODIUM 133 MMOL/L (135-145); TOTAL CARBON DIOXIDE 24.3 MMOL/L (24-32); TOTAL PROTEIN 5.7 G/DL (6.4-8.2); eGFR 80 ML/MIN
[2021-05-23 08:58] LABS: D-DIMER 3.67 MG/L FEU (0-0.50)
[2021-05-23] MEDS: benzonatate 100mg capsule PO PRN (09:10)
[2021-05-23] MEDS: REMDESIVIR INJ 100 MG in normal saline 100ml IV soln 100 ML IV SCH (09:10)
[2021-05-23] MEDS: docusate sod 100mg capsule PO SCH ×2 (09:10→21:27)
[2021-05-23] MEDS: enoxaparin 40mg/0.4ml syringe SQ SCH ×2 (09:11→21:27)
[2021-05-23 10:00] VITALS: BP 150/58
--- NOTE | 2021-05-23 11:42 | NUR ---
Page Sent PAGER ID: [phone] MESSAGE: JOHN [id number]-RE: [facility] 4022A...PT REQUESTING SOMETHING FOR MUCOUS IN THROAT
--- NOTE | 2021-05-23 14:11 | NUR ---
Initial: Pt admit DX COVID-19, PNA, acute respiratory failure, and hyponatremia per EMR. Serum Na this AM 133 mmol/L up from 119 on admit placed on heart healthy diet. Pt PO ~36% avg meals past 3 days declining to refusal of past two meals per EMR. Ensure Enlive TIDWM to start WL today per EMR. RD d/w RN poor PO intake; RN reports increased oxygen needs on 15L high flow salter and non-rebreather. RN also reports pt stating poor appetite at this time. RD d/w RN recommends liberalizing to regular diet given low serum Na w/ poor PO intake and considering appetite stimulant per MD discretion. LBM 05/19 receiving routine colace and PRN MoM 05/21. Will continue to monitor for further nutrition intervention needs this admit. Rec: 1. liberalize to regular diet; consistent low serum Na and poor PO intake 2. Ensure Enlive TIDWM per MD; encourage PO 3. encourage meal/ONS intake 4. routine bowel care 5. weekly wts Addendum: 05/23/21 at [address] Amended: Links added.
[2021-05-23] MEDS ORDERED: iohexol 350MG/ML 100ml bottle IV ONE (14:26)
[2021-05-23] MEDS: guaiFENesin/codeine phos 10ml UD oral syrup PO PRN (14:43)
[2021-05-23 18:00] VITALS: BP 116/53
--- NOTE | 2021-05-23 18:41 | NUR ---
Problems reprioritized. Patient report given, questions answered & plan of care reviewed with PATIENCE OCHOA.
[2021-05-23] MEDS: guaiFENesin ER 600mg tablet PO SCH (21:27)
[2021-05-23 22:00] VITALS: BP 136/63
[2021-05-24 02:00] VITALS: BP 149/77
[2021-05-24] MEDS: benzonatate 100mg capsule PO PRN ×2 (03:04→19:02)
[2021-05-24] MEDS: normal saline 1000ml 1,000 ML IV SCH ×2 (03:05→19:01)
[2021-05-24 06:00] VITALS: BP 141/64
[2021-05-24 07:03] LABS: BASOPHILS % (AUTO) 0.1 % (0-1); EOSINOPHILS % (AUTO) 0 % (0-6); LYMPHOCYTES # (AUTO) 0.5 X10'3 (1.1-4.8); LYMPHOCYTES % (AUTO) 7.4 % (21-51); MEAN CORPUSCULAR HEMOGLOBIN 31.7 PG (27.0-31.0); MEAN CORPUSCULAR HGB CONC 34.3 g/dL (33.0-36.5); MEAN CORPUSCULAR VOLUME 92.3 FL (78-98); MEAN PLATELET VOLUME 8.2 FL (7.4-10.4); MONOCYTES # (AUTO) 0.1 X10'3 (0-0.9); MONOCYTES % (AUTO) 1.2 % (2-12); NEUTROPHILS # (AUTO) 6.3 X10'3 (1.8-7.7); NEUTROPHILS % (AUTO) 91.3 % (42-75); PLATELET COUNT 239 X10'3 (140-440); RED BLOOD COUNT 4.12 X10'6 (4.20-5.60); RED CELL DISTRIBUTION WIDTH 13.7 % (11.5-14.5); WHITE BLOOD COUNT 6.9 X10'3 (4.5-11.0)
[2021-05-24 07:10] LABS: D-DIMER 3.51 MG/L FEU (0-0.50)
[2021-05-24 07:25] LABS: ALANINE AMINOTRANSFERASE 34 U/L (12-78); ALBUMIN 2.3 G/DL (3.4-5.0); ALBUMIN/GLOBULIN RATIO 0.7 (1.1-1.5); ALKALINE PHOSPHATASE 85 IU/L (46-116); ANION GAP 8 (8-16); ASPARTATE AMINO TRANSFERASE 32 U/L (10-37); BILIRUBIN,TOTAL 0.3 MG/DL (0.1-1.0); BLOOD UREA NITROGEN 19 MG/DL (7-18); BUN/CREATININE RATIO 27.5 (6.6-38.0); CALCIUM 8.7 MG/DL (8.5-10.1); CHLORIDE 100 MMOL/L (99-107); CREATININE 0.69 MG/DL (0.40-0.90); GLUCOSE 154 MG/DL (70-104); MAGNESIUM 2.1 MG/DL (1.5-2.4); POTASSIUM 4.8 MMOL/L (3.5-5.1); SODIUM 134 MMOL/L (135-145); TOTAL CARBON DIOXIDE 25.8 MMOL/L (24-32); TOTAL PROTEIN 5.8 G/DL (6.4-8.2); eGFR 83 ML/MIN
[2021-05-24] MEDS: K and/or MAG REPLACEMENT MC SCH ×2 (08:00→19:00)
[2021-05-24] MEDS: lactose-reduced food (Ensure Enlive) - 237ml bottle PO SCH ×3 (08:00→18:56)
[2021-05-24 09:22] LABS: PLATELET ESTIMATE NORMAL; TOTAL CELLS COUNTED 100
[2021-05-24 09:26] LABS: BURR CELLS 2+
[2021-05-24 09:27] LABS: SCHISTOCYTES FEW
[2021-05-24] MEDS: docusate sod 100mg capsule PO SCH ×2 (10:08→19:00)
[2021-05-24] MEDS: guaiFENesin ER 600mg tablet PO SCH ×2 (10:08→19:00)
[2021-05-24] MEDS: enoxaparin 40mg/0.4ml syringe SQ SCH ×2 (10:09→19:00)
[2021-05-24] MEDS: dexamethasone inj 6 MG in dextrose 5%-water 100 ML IV SCH ×2 (10:09→19:00)
[2021-05-24 13:00] VITALS: BP 151/59
--- NOTE | 2021-05-24 18:47 | NUR ---
Spoke to daughter Matilde regarding a mix up of patient information shared with sister Jacquelyn earlier in the shift. An update was given, but about the wrong patient. I explained to the patient and updated her with the right patient info and she said she will share the info with her sister.
--- NOTE | 2021-05-24 18:48 | NUR ---
Problems reprioritized. Patient report given, questions answered & plan of care reviewed with Mojgan MORIN.
[2021-05-24 19:00] VITALS: BP 152/68
[2021-05-24] MEDS: LORazepam 0.5 MG tablet PO PRN (21:39)
[2021-05-24 21:58] VITALS: BP 153/68
[2021-05-25 02:00] VITALS: BP 143/76
[2021-05-25] MEDS: normal saline 1000ml 1,000 ML IV SCH ×2 (03:45→14:40)
[2021-05-25 06:00] VITALS: BP 141/72
[2021-05-25] MEDS: K and/or MAG REPLACEMENT MC SCH ×2 (08:00→20:00)
[2021-05-25] MEDS: lactose-reduced food (Ensure Enlive) - 237ml bottle PO SCH ×3 (08:00→18:00)
[2021-05-25 08:30] LABS: D-DIMER 3.52 MG/L FEU (0-0.50)
[2021-05-25] MEDS: dexamethasone inj 6 MG in dextrose 5%-water 100 ML IV SCH ×2 (09:14→20:37)
[2021-05-25] MEDS: guaiFENesin ER 600mg tablet PO SCH ×2 (09:14→20:37)
[2021-05-25] MEDS: enoxaparin 40mg/0.4ml syringe SQ SCH ×2 (09:14→20:38)
[2021-05-25] MEDS: docusate sod 100mg capsule PO SCH ×2 (09:14→20:37)
[2021-05-25 10:00] VITALS: BP 124/52
[2021-05-25 14:00] VITALS: BP 143/70
[2021-05-25] MEDS: guaiFENesin/codeine phos 10ml UD oral syrup PO PRN (16:57)
[2021-05-25 18:00] VITALS: BP 164/73
--- NOTE | 2021-05-25 18:31 | NUR ---
Problems reprioritized. Patient report given, questions answered & plan of care reviewed with PATIENCE Pastor.
--- NOTE | 2021-05-25 18:50 | NUR ---
Patient in room [facility]TH[facility] 4022. I have received report from PATIENCE Zaragoza and had the opportunity to ask questions and assume patient care.
[2021-05-25] MEDS: benzonatate 100mg capsule PO PRN (21:35)
[2021-05-25] MEDS: LORazepam 0.5 MG tablet PO PRN (21:35)
[2021-05-25 22:00] VITALS: BP 153/65
[2021-05-26] MEDS: normal saline 1000ml 1,000 ML IV SCH ×3 (00:32→20:40)
[2021-05-26 02:00] VITALS: BP 157/69
--- NOTE | 2021-05-26 06:05 | NUR ---
Problems reprioritized. Patient report given, questions answered & plan of care reviewed with PATIENCE Torres.
[2021-05-26 06:48] VITALS: BP 136/66
[2021-05-26 07:17] LABS: D-DIMER 4.35 MG/L FEU (0-0.50)
[2021-05-26] MEDS: K and/or MAG REPLACEMENT MC SCH ×2 (08:00→20:00)
[2021-05-26] MEDS: dexamethasone inj 6 MG in dextrose 5%-water 100 ML IV SCH ×2 (08:04→20:32)
[2021-05-26] MEDS: enoxaparin 40mg/0.4ml syringe SQ SCH ×2 (08:04→20:35)
[2021-05-26] MEDS: guaiFENesin ER 600mg tablet PO SCH ×2 (08:04→20:34)
[2021-05-26] MEDS: docusate sod 100mg capsule PO SCH ×2 (08:04→20:32)
[2021-05-26] MEDS: lactose-reduced food (Ensure Enlive) - 237ml bottle PO SCH ×3 (08:16→18:01)
[2021-05-26 12:22] LABS: ALANINE AMINOTRANSFERASE 42 U/L (12-78); ALBUMIN 2.8 G/DL (3.4-5.0); ALBUMIN/GLOBULIN RATIO 0.9 (1.1-1.5); ALKALINE PHOSPHATASE 90 IU/L (46-116); ANION GAP 7 (8-16); ASPARTATE AMINO TRANSFERASE 36 U/L (10-37); BILIRUBIN,TOTAL 0.5 MG/DL (0.1-1.0); BLOOD UREA NITROGEN 19 MG/DL (7-18); BUN/CREATININE RATIO 25.3 (6.6-38.0); C-REACTIVE PROTEIN 2.29 MG/DL (0.0-0.5); CALCIUM 8.9 MG/DL (8.5-10.1); CHLORIDE 96 MMOL/L (99-107); CREATININE 0.75 MG/DL (0.40-0.90); GLUCOSE 100 MG/DL (70-104); POTASSIUM 4.6 MMOL/L (3.5-5.1); SODIUM 129 MMOL/L (135-145); TOTAL CARBON DIOXIDE 25.7 MMOL/L (24-32); TOTAL PROTEIN 5.8 G/DL (6.4-8.2); eGFR 75 ML/MIN
[2021-05-26 12:58] LABS: D-DIMER 5.08 MG/L FEU (0-0.50)
[2021-05-26 13:30] LABS: BASOPHILS % (AUTO) 0.1 % (0-1); EOSINOPHILS % (AUTO) 0 % (0-6); HEMATOCRIT 40.9 % (35.0-45.0); HEMOGLOBIN 13.9 g/dl (12.0-16.0); LYMPHOCYTES # (AUTO) 0.4 X10'3 (1.1-4.8); LYMPHOCYTES % (AUTO) 4.2 % (21-51); MEAN CORPUSCULAR HEMOGLOBIN 31.4 PG (27.0-31.0); MEAN CORPUSCULAR HGB CONC 34.1 g/dL (33.0-36.5); MEAN PLATELET VOLUME 8.1 FL (7.4-10.4); MONOCYTES # (AUTO) 0.1 X10'3 (0-0.9); MONOCYTES % (AUTO) 0.9 % (2-12); NEUTROPHILS % (AUTO) 94.8 % (42-75); PLATELET COUNT 214 X10'3 (140-440); RED BLOOD COUNT 4.45 X10'6 (4.20-5.60); RED CELL DISTRIBUTION WIDTH 13.7 % (11.5-14.5); WHITE BLOOD COUNT 10.6 X10'3 (4.5-11.0)
[2021-05-26 15:54] VITALS: BP 136/66
--- NOTE | 2021-05-26 16:25 | NUR ---
Reassessment: Pt PO meals intake remains poor ~20% past 4 days now refusing all meals and ONS at breakfast/lunch today per EMR. Pt previously 100% intake Ensure Enlive TIDWM; not meeting needs at this time. Noted pt on 30L HFNC and was eating slightly better when on 15L prior; likely impacting PO trends. Noted serum Na 129mmol/L this AM w/ pt receiving IV NS at 100ml/hr and to start PO salt tabs TID per EMR. RD paged MD regarding liberalizing to regular diet given poor PO trends throughout LOS and persistent low serum Na w/ current heart healthy diet restricting Na intake. LBM 05/24 receiving routine colace. Will continue to monitor for further nutrition intervention needs. Rec: 1. liberalize to regular diet; consistent low serum Na and poor PO intake currently w/ sodium restriction on heart healthy diet 2. Ensure Enlive TIDWM per MD 3. encourage meal/ONS intake 4. routine bowel care 5. weekly wts 6. IF PO/ONS refusal persists r/t respiratory status; consider post-pyloric NG feeds to optimize nutrition status Addendum: 05/26/21 at [address] Amended: Links added.
[2021-05-26 18:00] VITALS: BP 136/70
--- NOTE | 2021-05-26 18:22 | NUR ---
Problems reprioritized. Patient report given, questions answered & plan of care reviewed with ALCON MORIN.
[2021-05-26] MEDS: sodium chloride 1gm tablet PO SCH (20:33)
[2021-05-26 22:00] VITALS: BP 146/62
[2021-05-26] MEDS: guaiFENesin/codeine phos 10ml UD oral syrup PO PRN (23:55)
[2021-05-27 02:00] VITALS: BP 129/65
[2021-05-27] MEDS: normal saline 1000ml 1,000 ML IV SCH (05:20)
[2021-05-27 06:00] VITALS: BP 133/69
--- NOTE | 2021-05-27 06:24 | NUR ---
Problems reprioritized. Patient report given, questions answered & plan of care reviewed with Shannan.
[2021-05-27] MEDS: K and/or MAG REPLACEMENT MC SCH ×2 (08:00→19:55)
[2021-05-27] MEDS: lactose-reduced food (Ensure Enlive) - 237ml bottle PO SCH ×3 (08:00→18:00)
[2021-05-27] MEDS: guaiFENesin ER 600mg tablet PO SCH ×2 (09:53→19:54)
[2021-05-27] MEDS: sodium chloride 1gm tablet PO SCH ×3 (09:53→19:55)
[2021-05-27] MEDS: docusate sod 100mg capsule PO SCH ×2 (09:53→19:54)
[2021-05-27 10:00] VITALS: BP 143/66
[2021-05-27 11:21] LABS: BASOPHILS % (AUTO) 0 % (0-1); EOSINOPHILS % (AUTO) 0 % (0-6); HEMATOCRIT 39.8 % (35.0-45.0); HEMOGLOBIN 13.7 g/dl (12.0-16.0); LYMPHOCYTES # (AUTO) 0.4 X10'3 (1.1-4.8); LYMPHOCYTES % (AUTO) 4.4 % (21-51); MEAN CORPUSCULAR HEMOGLOBIN 31.8 PG (27.0-31.0); MEAN CORPUSCULAR HGB CONC 34.4 g/dL (33.0-36.5); MEAN CORPUSCULAR VOLUME 92.3 FL (78-98); MONOCYTES # (AUTO) 0.1 X10'3 (0-0.9); MONOCYTES % (AUTO) 1.3 % (2-12); NEUTROPHILS # (AUTO) 9.2 X10'3 (1.8-7.7); NEUTROPHILS % (AUTO) 94.3 % (42-75); PLATELET COUNT 196 X10'3 (140-440); RED BLOOD COUNT 4.31 X10'6 (4.20-5.60); RED CELL DISTRIBUTION WIDTH 13.8 % (11.5-14.5); WHITE BLOOD COUNT 9.8 X10'3 (4.5-11.0)
[2021-05-27 11:34] LABS: D-DIMER 4.17 MG/L FEU (0-0.50)
[2021-05-27 11:37] LABS: ALANINE AMINOTRANSFERASE 46 U/L (12-78); ALBUMIN 2.8 G/DL (3.4-5.0); ALKALINE PHOSPHATASE 91 IU/L (46-116); ANION GAP 4 (8-16); ASPARTATE AMINO TRANSFERASE 35 U/L (10-37); BILIRUBIN,TOTAL 0.4 MG/DL (0.1-1.0); BLOOD UREA NITROGEN 21 MG/DL (7-18); BUN/CREATININE RATIO 25.9 (6.6-38.0); C-REACTIVE PROTEIN 1.08 MG/DL (0.0-0.5); CHLORIDE 96 MMOL/L (99-107); CREATININE 0.81 MG/DL (0.40-0.90); GLUCOSE 101 MG/DL (70-104); POTASSIUM 4.5 MMOL/L (3.5-5.1); SODIUM 129 MMOL/L (135-145); TOTAL CARBON DIOXIDE 28.6 MMOL/L (24-32); TOTAL PROTEIN 5.7 G/DL (6.4-8.2); eGFR 69 ML/MIN
[2021-05-27] MEDS: dexamethasone inj 6 MG in dextrose 5%-water 100 ML IV SCH ×2 (13:01→19:52)
[2021-05-27 14:00] VITALS: BP 141/54
[2021-05-27 18:00] VITALS: BP 167/68
--- NOTE | 2021-05-27 18:36 | NUR ---
Problems reprioritized. Patient report given, questions answered & plan of care reviewed with Nia MORIN.
[2021-05-27] MEDS: enoxaparin 60mg/0.6ml syringe SQ SCH (19:52)
[2021-05-27 22:00] VITALS: BP 148/64
[2021-05-28] MEDS: guaiFENesin/codeine phos 10ml UD oral syrup PO PRN ×2 (01:54→22:09)
[2021-05-28 02:00] VITALS: BP 150/65
[2021-05-28 06:00] VITALS: BP 140/56
--- NOTE | 2021-05-28 06:22 | NUR ---
Problems reprioritized. Patient report given, questions answered & plan of care reviewed with PRESTON.
--- NOTE | 2021-05-28 06:49 | NUR ---
Patient in room [facility]TH[facility] 4022A. I have received report from PATIENCE Kramer and had the opportunity to ask questions and assume patient care.
[2021-05-28] MEDS: K and/or MAG REPLACEMENT MC SCH ×2 (08:00→20:00)
[2021-05-28] MEDS: lactose-reduced food (Ensure Enlive) - 237ml bottle PO SCH ×3 (08:11→18:01)
[2021-05-28] MEDS: sodium chloride 1gm tablet PO SCH ×3 (08:11→20:44)
[2021-05-28] MEDS: dexamethasone inj 6 MG in dextrose 5%-water 100 ML IV SCH ×2 (08:11→22:02)
[2021-05-28] MEDS: guaiFENesin ER 600mg tablet PO SCH ×3 (08:11→20:44)
[2021-05-28] MEDS: enoxaparin 60mg/0.6ml syringe SQ SCH (08:11)
[2021-05-28] MEDS: docusate sod 100mg capsule PO SCH ×2 (08:11→20:44)
[2021-05-28 10:00] VITALS: BP 144/64
--- NOTE | 2021-05-28 18:18 | NUR ---
Problems reprioritized. Patient report given, questions answered & plan of care reviewed with PATIENCE Ferraro.
[2021-05-28 20:00] VITALS: BP 137/66
[2021-05-28] MEDS ORDERED: enoxaparin 60mg/0.6ml syringe SQ SCH (20:00)
--- NOTE | 2021-05-28 20:30 | NUR ---
She declined the routine Guafenesin (Mucinex) stating it made her cough too much last night. She would prefer to try sleeping prone tonight to see if that helps
[2021-05-28] MEDS: enoxaparin 40mg/0.4ml syringe SQ SCH (20:44)
[2021-05-28] MEDS: enoxaparin 30mg/0.3ml syringe SUBCUT SCH (20:45)
[2021-05-29] MEDS: guaiFENesin/codeine phos 10ml UD oral syrup PO PRN ×3 (04:11→19:49)
[2021-05-29 06:00] VITALS: BP 139/60
--- NOTE | 2021-05-29 06:36 | NUR ---
Change of shift report given to Sarina MORIN Addendum: 05/29/21 at 0636 by Jasmine Conti RN Amended: Links added.
--- NOTE | 2021-05-29 06:52 | NUR ---
Patient in room [facility]TH[facility] 4022A. I have received report from PATIENCE Ferraro and had the opportunity to ask questions and assume patient care.
[2021-05-29 07:09] LABS: BASOPHILS % (AUTO) 0 % (0-1); EOSINOPHILS % (AUTO) 0 % (0-6); HEMATOCRIT 41.1 % (35.0-45.0); HEMOGLOBIN 14.3 g/dl (12.0-16.0); LYMPHOCYTES # (AUTO) 0.3 X10'3 (1.1-4.8); LYMPHOCYTES % (AUTO) 2.5 % (21-51); MEAN CORPUSCULAR HEMOGLOBIN 31.9 PG (27.0-31.0); MEAN CORPUSCULAR HGB CONC 34.7 g/dL (33.0-36.5); MEAN PLATELET VOLUME 8.7 FL (7.4-10.4); MONOCYTES # (AUTO) 0.2 X10'3 (0-0.9); NEUTROPHILS # (AUTO) 10.3 X10'3 (1.8-7.7); NEUTROPHILS % (AUTO) 95.5 % (42-75); PLATELET COUNT 159 X10'3 (140-440); RED BLOOD COUNT 4.47 X10'6 (4.20-5.60); RED CELL DISTRIBUTION WIDTH 13.8 % (11.5-14.5); WHITE BLOOD COUNT 10.8 X10'3 (4.5-11.0)
[2021-05-29 07:16] LABS: ALBUMIN 2.9 G/DL (3.4-5.0); ANION GAP 5 (8-16); BLOOD UREA NITROGEN 21 MG/DL (7-18); BUN/CREATININE RATIO 29.6 (6.6-38.0); CALCIUM 9.2 MG/DL (8.5-10.1); CHLORIDE 92 MMOL/L (99-107); CREATININE 0.71 MG/DL (0.40-0.90); GLUCOSE 134 MG/DL (70-104); POTASSIUM 5.1 MMOL/L (3.5-5.1); SODIUM 125 MMOL/L (135-145); TOTAL CARBON DIOXIDE 27.6 MMOL/L (24-32); eGFR 80 ML/MIN
[2021-05-29 07:32] LABS: D-DIMER 6.84 MG/L FEU (0-0.50)
[2021-05-29] MEDS: lactose-reduced food (Ensure Enlive) - 237ml bottle PO SCH ×3 (07:57→18:02)
[2021-05-29] MEDS: K and/or MAG REPLACEMENT MC SCH ×2 (08:00→19:22)
[2021-05-29] MEDS: docusate sod 100mg capsule PO SCH ×2 (08:00→19:49)
[2021-05-29] MEDS: dexamethasone inj 6 MG in dextrose 5%-water 100 ML IV SCH ×2 (08:03→19:49)
[2021-05-29] MEDS: enoxaparin 30mg/0.3ml syringe SUBCUT SCH ×2 (08:03→19:49)
[2021-05-29] MEDS: enoxaparin 40mg/0.4ml syringe SQ SCH ×2 (08:04→19:49)
[2021-05-29] MEDS: sodium chloride 1gm tablet PO SCH ×3 (08:04→19:49)
[2021-05-29] MEDS: guaiFENesin ER 600mg tablet PO SCH ×2 (08:04→19:49)
[2021-05-29] MEDS: benzonatate 100mg capsule PO PRN (08:10)
[2021-05-29] MEDS: ondansetron/PF 4mg/2ml inj IV PRN (08:11)
[2021-05-29 18:00] VITALS: BP 145/62
--- NOTE | 2021-05-29 18:11 | NUR ---
Problems reprioritized. Patient report given, questions answered & plan of care reviewed with PATIENCE oHlley.
[2021-05-29 22:00] VITALS: BP 134/60
[2021-05-30 02:00] VITALS: BP 131/68
[2021-05-30 06:00] VITALS: BP 120/53
--- NOTE | 2021-05-30 06:41 | NUR ---
Patient in room [facility]TH[facility] 4022A. I have received report from PATIENCE NARVAEZ and had the opportunity to ask questions and assume patient care.
[2021-05-30 06:43] LABS: BASOPHILS % (AUTO) 0 % (0-1); EOSINOPHILS % (AUTO) 0 % (0-6); HEMATOCRIT 41.2 % (35.0-45.0); HEMOGLOBIN 14.1 g/dl (12.0-16.0); LYMPHOCYTES # (AUTO) 0.3 X10'3 (1.1-4.8); LYMPHOCYTES % (AUTO) 3.2 % (21-51); MEAN CORPUSCULAR HEMOGLOBIN 31.7 PG (27.0-31.0); MEAN CORPUSCULAR HGB CONC 34.4 g/dL (33.0-36.5); MEAN CORPUSCULAR VOLUME 92.3 FL (78-98); MEAN PLATELET VOLUME 9.4 FL (7.4-10.4); MONOCYTES # (AUTO) 0.2 X10'3 (0-0.9); MONOCYTES % (AUTO) 1.8 % (2-12); PLATELET COUNT 158 X10'3 (140-440); RED BLOOD COUNT 4.46 X10'6 (4.20-5.60); RED CELL DISTRIBUTION WIDTH 13.8 % (11.5-14.5); WHITE BLOOD COUNT 9.5 X10'3 (4.5-11.0)
[2021-05-30 07:03] LABS: D-DIMER 4.96 MG/L FEU (0-0.50)
[2021-05-30 07:14] LABS: ALBUMIN 2.9 G/DL (3.4-5.0); ANION GAP 5 (8-16); BLOOD UREA NITROGEN 23 MG/DL (7-18); BUN/CREATININE RATIO 34.8 (6.6-38.0); C-REACTIVE PROTEIN 0.25 MG/DL (0.0-0.5); CHLORIDE 94 MMOL/L (99-107); CREATININE 0.66 MG/DL (0.40-0.90); GLUCOSE 137 MG/DL (70-104); POTASSIUM 5.2 MMOL/L (3.5-5.1); SODIUM 129 MMOL/L (135-145); TOTAL CARBON DIOXIDE 30.2 MMOL/L (24-32); eGFR 87 ML/MIN
[2021-05-30] MEDS: lactose-reduced food (Ensure Enlive) - 237ml bottle PO SCH ×3 (08:00→18:30)
[2021-05-30] MEDS: K and/or MAG REPLACEMENT MC SCH ×2 (08:00→19:32)
[2021-05-30] MEDS: dexamethasone inj 6 MG in dextrose 5%-water 100 ML IV SCH (08:59)
[2021-05-30] MEDS: sodium chloride 1gm tablet PO SCH ×3 (09:01→19:39)
[2021-05-30] MEDS: guaiFENesin ER 600mg tablet PO SCH ×2 (09:01→19:39)
[2021-05-30] MEDS: docusate sod 100mg capsule PO SCH ×2 (09:01→19:39)
[2021-05-30] MEDS: benzonatate 100mg capsule PO PRN (09:07)
[2021-05-30] MEDS: enoxaparin 40mg/0.4ml syringe SQ SCH ×2 (09:08→19:40)
[2021-05-30] MEDS: enoxaparin 30mg/0.3ml syringe SUBCUT SCH ×2 (09:08→19:40)
[2021-05-30 10:00] VITALS: BP 139/71
--- NOTE | 2021-05-30 16:14 | NUR ---
F/u 05/30: Pt advanced to regular diet w/ serum Na 129 receiving PO salt tabs TID per EMR. PO further regressed past two days ~15% overall avg meals and 100% PO two of past 5 Ensure Enlives not meeting needs. Pt down to 15L HFNC down from 30L prior per EMR. RD able to reach pt via TC; pt reports likes ensures but would like soups/crackers/jellos given appetite, declines sandwiches at this time. Will chop meats for ease of PO, send soups BIDLD, and add magic cups WS; dietary notified. RD verbally educated pt on importance of protein/kcal intake at this time and encouraged PO meals/ONS. LBM 05/30 receiving routine colace. Will continue to monitor for further nutrition intervention needs. Rec: 1. continue regular diet 2. Ensure Enlive TIDWM, soups/crackers BIDLD, magic cup WS 3. encourage meal/ONS intake 4. routine bowel care 5. weekly wts 6. Monitor further PO trends for nutrition support needs IF PO remains poor w/ new meal additions per pt preferences Addendum: 05/30/21 at [address] Amended: Links added.
[2021-05-30 18:00] VITALS: BP 145/72
--- NOTE | 2021-05-30 18:20 | NUR ---
Problems reprioritized. Patient report given, questions answered & plan of care reviewed with PATIENCE NARVAEZ.
[2021-05-30] MEDS: dexamethasone inj 4 MG in dextrose 5%-water 100 ML IV SCH (19:39)
[2021-05-30] MEDS: guaiFENesin/codeine phos 10ml UD oral syrup PO PRN (19:51)
[2021-05-30 22:00] VITALS: BP 123/58
[2021-05-31 02:06] VITALS: BP 125/59
[2021-05-31] MEDS: guaiFENesin/codeine phos 10ml UD oral syrup PO PRN (04:59)
[2021-05-31 06:06] VITALS: BP 135/63
[2021-05-31] MEDS: K and/or MAG REPLACEMENT MC SCH ×2 (08:00→20:00)
[2021-05-31] MEDS: sodium chloride 1gm tablet PO SCH ×3 (08:27→21:27)
[2021-05-31] MEDS: docusate sod 100mg capsule PO SCH ×2 (08:27→21:27)
[2021-05-31] MEDS: dexamethasone inj 4 MG in dextrose 5%-water 100 ML IV SCH ×2 (08:27→21:27)
[2021-05-31] MEDS: lactose-reduced food (Ensure Enlive) - 237ml bottle PO SCH ×3 (08:28→18:00)
[2021-05-31] MEDS: guaiFENesin ER 600mg tablet PO SCH ×2 (08:28→21:27)
[2021-05-31] MEDS: enoxaparin 30mg/0.3ml syringe SUBCUT SCH ×2 (08:28→21:28)
[2021-05-31] MEDS: enoxaparin 40mg/0.4ml syringe SQ SCH ×2 (08:28→21:28)
[2021-05-31 08:47] LABS: BASOPHILS % (AUTO) 0.1 % (0-1); EOSINOPHILS % (AUTO) 0 % (0-6); HEMATOCRIT 42.6 % (35.0-45.0); HEMOGLOBIN 14.4 g/dl (12.0-16.0); LYMPHOCYTES # (AUTO) 0.5 X10'3 (1.1-4.8); LYMPHOCYTES % (AUTO) 5.2 % (21-51); MEAN CORPUSCULAR HEMOGLOBIN 31.5 PG (27.0-31.0); MEAN CORPUSCULAR HGB CONC 33.7 g/dL (33.0-36.5); MEAN CORPUSCULAR VOLUME 93.5 FL (78-98); MEAN PLATELET VOLUME 9.4 FL (7.4-10.4); MONOCYTES # (AUTO) 0.3 X10'3 (0-0.9); MONOCYTES % (AUTO) 3.2 % (2-12); NEUTROPHILS % (AUTO) 91.5 % (42-75); PLATELET COUNT 170 X10'3 (140-440); RED BLOOD COUNT 4.56 X10'6 (4.20-5.60); RED CELL DISTRIBUTION WIDTH 13.9 % (11.5-14.5); WHITE BLOOD COUNT 9.9 X10'3 (4.5-11.0)
[2021-05-31] MEDS: ondansetron/PF 4mg/2ml inj IV PRN (08:58)
[2021-05-31 09:07] LABS: ALBUMIN 3.2 G/DL (3.4-5.0); ANION GAP 6 (8-16); BLOOD UREA NITROGEN 23 MG/DL (7-18); BUN/CREATININE RATIO 36.5 (6.6-38.0); C-REACTIVE PROTEIN 0.11 MG/DL (0.0-0.5); CALCIUM 9.2 MG/DL (8.5-10.1); CHLORIDE 96 MMOL/L (99-107); CREATININE 0.63 MG/DL (0.40-0.90); GLUCOSE 99 MG/DL (70-104); POTASSIUM 5.4 MMOL/L (3.5-5.1); SODIUM 132 MMOL/L (135-145); TOTAL CARBON DIOXIDE 30.3 MMOL/L (24-32); eGFR > 90 ML/MIN
[2021-05-31 09:51] LABS: D-DIMER 2.99 MG/L FEU (0-0.50)
[2021-05-31 10:10] VITALS: BP 147/64
[2021-05-31 18:00] VITALS: BP 151/60
--- NOTE | 2021-05-31 18:30 | NUR ---
Patient in room [facility]TH[facility] 4022. I have received report from PATIENCE Scherer and had the opportunity to ask questions and assume patient care.
[2021-05-31] MEDS: LORazepam 0.5 MG tablet PO PRN (21:43)
[2021-05-31 22:00] VITALS: BP 130/51
[2021-06-01 02:00] VITALS: BP 145/55
[2021-06-01 06:06] VITALS: BP 137/50
--- NOTE | 2021-06-01 06:22 | NUR ---
Problems reprioritized. Patient report given, questions answered & plan of care reviewed with PATIENCE Scherer.
[2021-06-01 07:20] LABS: BASOPHILS % (AUTO) 0 % (0-1); EOSINOPHILS % (AUTO) 0 % (0-6); HEMATOCRIT 41.8 % (35.0-45.0); HEMOGLOBIN 14.3 g/dl (12.0-16.0); LYMPHOCYTES # (AUTO) 0.3 X10'3 (1.1-4.8); LYMPHOCYTES % (AUTO) 2.8 % (21-51); MEAN CORPUSCULAR HEMOGLOBIN 31.7 PG (27.0-31.0); MEAN CORPUSCULAR HGB CONC 34.1 g/dL (33.0-36.5); MEAN CORPUSCULAR VOLUME 92.8 FL (78-98); MEAN PLATELET VOLUME 9.5 FL (7.4-10.4); MONOCYTES # (AUTO) 0.3 X10'3 (0-0.9); MONOCYTES % (AUTO) 2.1 % (2-12); NEUTROPHILS # (AUTO) 11.5 X10'3 (1.8-7.7); NEUTROPHILS % (AUTO) 95.1 % (42-75); PLATELET COUNT 187 X10'3 (140-440); RED BLOOD COUNT 4.51 X10'6 (4.20-5.60); RED CELL DISTRIBUTION WIDTH 14.2 % (11.5-14.5); WHITE BLOOD COUNT 12.1 X10'3 (4.5-11.0)
[2021-06-01 07:28] LABS: D-DIMER 2.71 MG/L FEU (0-0.50)
[2021-06-01 07:36] LABS: ALBUMIN 2.9 G/DL (3.4-5.0); ANION GAP 1 (8-16); BLOOD UREA NITROGEN 25 MG/DL (7-18); BUN/CREATININE RATIO 43.9 (6.6-38.0); C-REACTIVE PROTEIN 0.06 MG/DL (0.0-0.5); CALCIUM 8.8 MG/DL (8.5-10.1); CHLORIDE 99 MMOL/L (99-107); CREATININE 0.57 MG/DL (0.40-0.90); GLUCOSE 111 MG/DL (70-104); POTASSIUM 5.2 MMOL/L (3.5-5.1); SODIUM 132 MMOL/L (135-145); TOTAL CARBON DIOXIDE 31.9 MMOL/L (24-32); eGFR > 90 ML/MIN
[2021-06-01] MEDS: K and/or MAG REPLACEMENT MC SCH ×2 (08:00→20:00)
[2021-06-01] MEDS: enoxaparin 30mg/0.3ml syringe SUBCUT SCH ×2 (08:23→20:59)
[2021-06-01] MEDS: guaiFENesin ER 600mg tablet PO SCH ×2 (08:23→20:58)
[2021-06-01] MEDS: docusate sod 100mg capsule PO SCH ×2 (08:23→20:58)
[2021-06-01] MEDS: sodium chloride 1gm tablet PO SCH ×3 (08:23→20:58)
[2021-06-01] MEDS: dexamethasone inj 4 MG in dextrose 5%-water 100 ML IV SCH ×2 (08:23→20:58)
[2021-06-01] MEDS: enoxaparin 40mg/0.4ml syringe SQ SCH ×2 (08:23→20:59)
[2021-06-01] MEDS: lactose-reduced food (Ensure Enlive) - 237ml bottle PO SCH ×3 (08:23→17:53)
[2021-06-01 10:10] VITALS: BP 109/63
[2021-06-01] MEDS: LORazepam 2 mg/ml vial IV PRN (12:53)
[2021-06-01 18:00] VITALS: BP 131/75
--- NOTE | 2021-06-01 20:10 | NUR ---
pt has dried blood in nose. did nasal spray and moisturizer. will attempt again later
[2021-06-01] MEDS: benzonatate 100mg capsule PO PRN (20:58)
[2021-06-01] MEDS: LORazepam 0.5 MG tablet PO PRN (20:58)
--- NOTE | 2021-06-01 21:30 | NUR ---
turned pt to left side. desat to 70% with movement. recovered up to 87%. will attempt to leave her on this side for a while.
[2021-06-01 22:00] VITALS: BP 116/39
--- NOTE | 2021-06-01 22:40 | NUR ---
repositioned back to right side. pt was 84%. recovered back up to 92% on
[2021-06-02 02:15] VITALS: BP 129/59
--- NOTE | 2021-06-02 04:00 | NUR ---
still on Right side. sats 93% on
[2021-06-02 06:00] VITALS: BP 112/52
--- NOTE | 2021-06-02 06:25 | NUR ---
reported to days. noted pt may benefit from some IVF if she is unable to keep PO intake up. noted low urine output
--- NOTE | 2021-06-02 07:12 | NUR ---
Patient in room [facility]TH[facility] 4022. I have received report from Karlene MORIN and had the opportunity to ask questions and assume patient care.
[2021-06-02] MEDS: K and/or MAG REPLACEMENT MC SCH ×2 (07:26→20:00)
[2021-06-02 07:45] LABS: BASOPHILS % (AUTO) 0.1 % (0-1); EOSINOPHILS % (AUTO) 0 % (0-6); HEMATOCRIT 41.3 % (35.0-45.0); LYMPHOCYTES # (AUTO) 0.4 X10'3 (1.1-4.8); LYMPHOCYTES % (AUTO) 3.9 % (21-51); MEAN CORPUSCULAR HEMOGLOBIN 31.7 PG (27.0-31.0); MEAN CORPUSCULAR HGB CONC 33.9 g/dL (33.0-36.5); MEAN CORPUSCULAR VOLUME 93.6 FL (78-98); MEAN PLATELET VOLUME 8.9 FL (7.4-10.4); MONOCYTES # (AUTO) 0.2 X10'3 (0-0.9); MONOCYTES % (AUTO) 1.6 % (2-12); NEUTROPHILS # (AUTO) 10.1 X10'3 (1.8-7.7); NEUTROPHILS % (AUTO) 94.4 % (42-75); PLATELET COUNT 193 X10'3 (140-440); RED BLOOD COUNT 4.41 X10'6 (4.20-5.60); RED CELL DISTRIBUTION WIDTH 14.1 % (11.5-14.5); WHITE BLOOD COUNT 10.7 X10'3 (4.5-11.0)
[2021-06-02 07:57] LABS: D-DIMER 2.54 MG/L FEU (0-0.50)
[2021-06-02 08:18] LABS: ALBUMIN 2.9 G/DL (3.4-5.0); ANION GAP 5 (8-16); BLOOD UREA NITROGEN 27 MG/DL (7-18); BUN/CREATININE RATIO 50.9 (6.6-38.0); C-REACTIVE PROTEIN 0.22 MG/DL (0.0-0.5); CALCIUM 9.3 MG/DL (8.5-10.1); CHLORIDE 99 MMOL/L (99-107); CREATININE 0.53 MG/DL (0.40-0.90); GLUCOSE 117 MG/DL (70-104); POTASSIUM 5.1 MMOL/L (3.5-5.1); SODIUM 133 MMOL/L (135-145); TOTAL CARBON DIOXIDE 29.1 MMOL/L (24-32); eGFR > 90 ML/MIN
[2021-06-02] MEDS: lactose-reduced food (Ensure Enlive) - 237ml bottle PO SCH ×3 (08:20→18:04)
[2021-06-02] MEDS: dexamethasone inj 4 MG in dextrose 5%-water 100 ML IV SCH (08:23)
[2021-06-02] MEDS: enoxaparin 40mg/0.4ml syringe SQ SCH ×2 (08:24→20:15)
[2021-06-02] MEDS: sodium chloride 1gm tablet PO SCH ×3 (08:24→20:14)
[2021-06-02] MEDS: docusate sod 100mg capsule PO SCH ×2 (08:24→20:00)
[2021-06-02] MEDS: guaiFENesin ER 600mg tablet PO SCH ×2 (08:24→20:14)
[2021-06-02] MEDS: enoxaparin 30mg/0.3ml syringe SUBCUT SCH ×2 (08:25→20:16)
[2021-06-02 14:00] VITALS: BP 118/62
[2021-06-02] MEDS ORDERED: bisacodyl 10mg suppository rectal RC PRN (14:00)
[2021-06-02] MEDS ORDERED: mineral oil 133ml enema RC PRN (14:00)
--- NOTE | 2021-06-02 16:39 | NUR ---
Reassessment: Per physician note oxygen demand went up to 30 L high flow. Pt continues on regular diet. Since last RD assessment 05/30 pt with average 25% PO intake of meals though down to 0-25% PO intake since dinner 06/01 with average 41% PO intake of Ensure Enlive TID. Overall pt roughly meeting 60% estimated energy needs and 31.5% estimated protein needs. Pt receiving food preferences to optimize PO intake. Pt would benefit from supplemental nutrition support IF PO intake does not improve. LBM 06/02. Will continue to follow closely and make recommendations as appropriate. Rec: 1. Continue regular diet 2. Ensure Enlive TIDWM, soups/crackers BIDLD, magic cup WS 3. Encourage meal/ONS intake 4. Routine bowel care 5. Weekly scaled weights 6. Monitor need for nutrition support IF PO intake does not improve Addendum: 06/02/21 at [address] Amended: Links added.
[2021-06-02 18:00] VITALS: BP 131/46
--- NOTE | 2021-06-02 18:22 | NUR ---
Patient in room [facility]TH[facility] 4022. I have received report from PATIENCE Humphrey and had the opportunity to ask questions and assume patient care.
--- NOTE | 2021-06-02 18:33 | NUR ---
Problems reprioritized. Patient report given, questions answered & plan of care reviewed with Akua MORIN.
[2021-06-02] MEDS: LORazepam 0.5 MG tablet PO PRN (20:14)
[2021-06-02 22:00] VITALS: BP 110/58
[2021-06-03 02:00] VITALS: BP 110/61
[2021-06-03] MEDS: guaiFENesin/codeine phos 10ml UD oral syrup PO PRN (02:22)
[2021-06-03 06:00] VITALS: BP_SYST 117; BP_SYST 151; BP_DIAS 57; BP_DIAS 66
--- NOTE | 2021-06-03 06:11 | NUR ---
Problems reprioritized. Patient report given, questions answered & plan of care reviewed with PATIENCE Humphrey.
--- NOTE | 2021-06-03 06:32 | NUR ---
Patient in room [facility]TH[facility] 4022. I have received report from Akua MORIN and had the opportunity to ask questions and assume patient care.
[2021-06-03] MEDS: lactose-reduced food (Ensure Enlive) - 237ml bottle PO SCH ×3 (07:44→18:24)
[2021-06-03] MEDS: K and/or MAG REPLACEMENT MC SCH ×2 (07:44→19:50)
[2021-06-03] MEDS: dexamethasone inj 6 MG in dextrose 5%-water 100 ML IV SCH (07:49)
[2021-06-03] MEDS: sodium chloride 1gm tablet PO SCH ×3 (07:49→20:22)
[2021-06-03] MEDS: guaiFENesin ER 600mg tablet PO SCH ×2 (07:49→20:22)
[2021-06-03] MEDS: LORazepam 0.5 MG tablet PO PRN ×2 (07:49→20:35)
[2021-06-03] MEDS: enoxaparin 40mg/0.4ml syringe SQ SCH ×2 (07:50→20:23)
[2021-06-03] MEDS: enoxaparin 30mg/0.3ml syringe SUBCUT SCH ×2 (07:50→20:23)
[2021-06-03] MEDS: docusate sod 100mg capsule PO SCH ×2 (07:53→20:22)
[2021-06-03 08:22] LABS: BASOPHILS % (AUTO) 0.2 % (0-1); EOSINOPHILS % (AUTO) 0 % (0-6); HEMATOCRIT 41.3 % (35.0-45.0); HEMOGLOBIN 13.9 g/dl (12.0-16.0); LYMPHOCYTES # (AUTO) 0.7 X10'3 (1.1-4.8); LYMPHOCYTES % (AUTO) 5.1 % (21-51); MEAN CORPUSCULAR HEMOGLOBIN 31.5 PG (27.0-31.0); MEAN CORPUSCULAR HGB CONC 33.6 g/dL (33.0-36.5); MEAN CORPUSCULAR VOLUME 93.6 FL (78-98); MONOCYTES # (AUTO) 0.3 X10'3 (0-0.9); MONOCYTES % (AUTO) 2.3 % (2-12); NEUTROPHILS # (AUTO) 11.8 X10'3 (1.8-7.7); NEUTROPHILS % (AUTO) 92.4 % (42-75); PLATELET COUNT 214 X10'3 (140-440); RED BLOOD COUNT 4.42 X10'6 (4.20-5.60); RED CELL DISTRIBUTION WIDTH 14.4 % (11.5-14.5); WHITE BLOOD COUNT 12.8 X10'3 (4.5-11.0)
[2021-06-03 08:57] LABS: D-DIMER 2.98 MG/L FEU (0-0.50)
[2021-06-03 09:03] LABS: ALBUMIN 2.9 G/DL (3.4-5.0); ANION GAP 6 (8-16); BLOOD UREA NITROGEN 28 MG/DL (7-18); BUN/CREATININE RATIO 43.8 (6.6-38.0); C-REACTIVE PROTEIN 0.21 MG/DL (0.0-0.5); CALCIUM 9.4 MG/DL (8.5-10.1); CHLORIDE 99 MMOL/L (99-107); CREATININE 0.64 MG/DL (0.40-0.90); GLUCOSE 117 MG/DL (70-104); POTASSIUM 4.8 MMOL/L (3.5-5.1); SODIUM 135 MMOL/L (135-145); TOTAL CARBON DIOXIDE 29.6 MMOL/L (24-32); eGFR 90 ML/MIN
[2021-06-03 10:00] VITALS: BP_SYST 125; BP_SYST 152; BP_DIAS 54; BP_DIAS 73
[2021-06-03 14:30] VITALS: BP 145/61
--- NOTE | 2021-06-03 17:23 | NUR ---
PAGER ID: [phone] MESSAGE: Milagro [phone] re: Kalyn Noah in [id number]. Can I order a UA? Urine has an extremely foul odor.
[2021-06-03 18:00] VITALS: BP 141/62
[2021-06-03 22:00] VITALS: BP 141/62
[2021-06-03 23:21] LABS: CLARITY,URINE CLOUDY (Clear); COLOR,URINE YELLOW (Yellow); GLUCOSE, URINE NEGATIVE (Neg); KETONES,URINE TRACE mg/dl (Neg); LEUKOCYTE ESTERASE ,URINE SMALL (Neg); NITRITES, URINE NEGATIVE (Neg); OCCULT BLOOD,URINE NEGATIVE (Neg); PROTEIN,URINE NEGATIVE (Neg); UROBILINOGEN,URINE 0.2 E.U/dL (0.2-1.0)
[2021-06-03 23:29] LABS: UA COLLECTION TYPE STRAIGHT CATH
[2021-06-03 23:30] LABS: AMORPHOUS PHOSPHATES 3+; BACTERIA,URINE FEW /HPF (Neg); RBC,URINE NONE SEEN /HPF (0-2); SQUAMOUS EPITHELIAL CELL,UR FEW /LPF (FEW)
[2021-06-04 02:00] VITALS: BP 129/90
[2021-06-04] MEDS: guaiFENesin/codeine phos 10ml UD oral syrup PO PRN (02:30)
--- NOTE | 2021-06-04 06:36 | NUR ---
Patient in room [facility]TH[facility] 4021. I have received report from Shannan MORIN and had the opportunity to ask questions and assume patient care.
[2021-06-04 06:52] VITALS: BP 126/50
[2021-06-04] MEDS: docusate sod 100mg capsule PO SCH ×2 (07:45→21:11)
[2021-06-04] MEDS: dexamethasone inj 6 MG in dextrose 5%-water 100 ML IV SCH (07:45)
[2021-06-04] MEDS: enoxaparin 30mg/0.3ml syringe SUBCUT SCH ×2 (07:45→21:11)
[2021-06-04] MEDS: enoxaparin 40mg/0.4ml syringe SQ SCH ×2 (07:45→21:12)
[2021-06-04] MEDS: sodium chloride 1gm tablet PO SCH ×3 (07:46→21:11)
[2021-06-04] MEDS: guaiFENesin ER 600mg tablet PO SCH ×2 (07:46→21:11)
[2021-06-04] MEDS: lactose-reduced food (Ensure Enlive) - 237ml bottle PO SCH ×3 (08:00→18:00)
[2021-06-04] MEDS: K and/or MAG REPLACEMENT MC SCH ×2 (08:00→20:00)
[2021-06-04 08:39] LABS: BASOPHILS % (AUTO) 0.1 % (0-1); EOSINOPHILS % (AUTO) 0 % (0-6); HEMATOCRIT 41.8 % (35.0-45.0); HEMOGLOBIN 14.2 g/dl (12.0-16.0); LYMPHOCYTES # (AUTO) 0.6 X10'3 (1.1-4.8); LYMPHOCYTES % (AUTO) 4.6 % (21-51); MEAN CORPUSCULAR HGB CONC 33.9 g/dL (33.0-36.5); MEAN CORPUSCULAR VOLUME 94.4 FL (78-98); MEAN PLATELET VOLUME 8.9 FL (7.4-10.4); MONOCYTES # (AUTO) 0.3 X10'3 (0-0.9); MONOCYTES % (AUTO) 2.1 % (2-12); NEUTROPHILS # (AUTO) 11.9 X10'3 (1.8-7.7); NEUTROPHILS % (AUTO) 93.2 % (42-75); PLATELET COUNT 211 X10'3 (140-440); RED BLOOD COUNT 4.43 X10'6 (4.20-5.60); RED CELL DISTRIBUTION WIDTH 14.6 % (11.5-14.5); WHITE BLOOD COUNT 12.8 X10'3 (4.5-11.0)
[2021-06-04 08:55] LABS: ALBUMIN 2.9 G/DL (3.4-5.0); ANION GAP 5 (8-16); BLOOD UREA NITROGEN 27 MG/DL (7-18); BUN/CREATININE RATIO 49.1 (6.6-38.0); C-REACTIVE PROTEIN 0.73 MG/DL (0.0-0.5); CALCIUM 9.1 MG/DL (8.5-10.1); CHLORIDE 101 MMOL/L (99-107); CREATININE 0.55 MG/DL (0.40-0.90); GLUCOSE 114 MG/DL (70-104); POTASSIUM 4.9 MMOL/L (3.5-5.1); SODIUM 136 MMOL/L (135-145); TOTAL CARBON DIOXIDE 30.4 MMOL/L (24-32); eGFR > 90 ML/MIN
[2021-06-04] MEDS: LORazepam 0.5 MG tablet PO PRN (09:12)
[2021-06-04 10:15] LABS: D-DIMER 2.18 MG/L FEU (0-0.50)
[2021-06-04 11:26] VITALS: BP 136/60
[2021-06-04 15:00] VITALS: BP 140/78
[2021-06-04 18:00] VITALS: BP 136/90
--- NOTE | 2021-06-04 18:30 | NUR ---
Problems reprioritized. Patient report given, questions answered & plan of care reviewed with Colt MORIN.
[2021-06-04] MEDS: methylPREDNISolone sod succ 125mg/2ml vial IV SCH (21:11)
[2021-06-04] MEDS: nystatin 500,000 unit/5ML UD oral suspension PO SCH (21:13)
[2021-06-04] MEDS: LORazepam 2 mg/ml vial IV PRN (21:36)
[2021-06-04 22:00] VITALS: BP 143/64
[2021-06-04] MEDS ORDERED: azithromycin/NS 500mg/250ml 250 ML IV ONE (23:05)
[2021-06-04] MEDS ORDERED: CefTRIAXone 2gm/D5W 50ml BAG 50 ML IV ONE (23:05)
--- NOTE | 2021-06-05 01:17 | NUR ---
224906/04/2021 PATIENT FOUND UNRESPONSIVE WITH 02 SATS 78% AND NOT ABLE TO GET HER AWAKE ENOUGH TO TAKE DEEP BREATHS. POSITIONED PATIENT ONTO L SIDE, OXYGEN SATS CAME UP SLIGHTLY TO 85, BUT THEN DROPPED BACK DOWN INTO THE LOW 80'S. PLACED PATIEHT ONTO R SIDE AND ABLE TO MAINTAIN SATS AT 86-87% FOR A SHORT PERIOD, THEN SLOWLY DECREASED TO 84% RT ARRIVED AND PLACED PATIENT ONTO CPAP. SETTINGS AT 15/[address]%. DR. CERON ORDERED CXR, BLOOD CULTURES AND BLOOD WORK TO BE DONE. PATIENT MORE ALERT, ORIENTED AND SATS NOW 88-89%
[2021-06-05] MEDS: methylPREDNISolone sod succ 125mg/2ml vial IV SCH ×4 (01:20→19:25)
--- NOTE | 2021-06-05 01:48 | NUR ---
At 2300 patient noted with 02 sat at 84%, on 02 at 100 percent high flow tower, and 15L non-rebreather. Unable to get 02 sat up even after repositioning, and at one time was desaturating onto the late 70s. Respiratory therapist notified and was at bedside. MD Mc notified, and ordered patient put on BIPAP, and blood culture, and ABGs to be drawn, as well as chest xray. All orders carried out. Patient has been on BIPAP, and has been saturating in the 90s since; does not appear to be in respiratory distress presently.
[2021-06-05 01:55] LABS: ABG BASE EXCESS 2.3 mmol/L (-2.0-2.0); ABG OXYGEN SATURATION 91.3 % (94-97); ABG PCO2 (T) 53.5 mmHg (32.0-45.0); ABG PO2 (T) 61.3 mmHg (75.0-100.0); ALLEN'S TEST POSITIVE; FCOHb 1.1 % (0.0-3.9); FMetHb 0.3 % (0.0-1.5); RESPIRATORY RATE 12 b/min; TOTAL HEMOGLOBIN 13.7 G/dl (12.0-16.0)
[2021-06-05 02:00] VITALS: BP 128/67
[2021-06-05] MEDS ORDERED: LIDOcaine 2% 10ml TOPICAL JELLY (Urojet) TP ONE (05:50)
[2021-06-05 06:27] VITALS: BP 119/59
[2021-06-05 06:44] LABS: BASOPHILS % (AUTO) 0 % (0-1); EOSINOPHILS % (AUTO) 0 % (0-6); HEMATOCRIT 39.1 % (35.0-45.0); HEMOGLOBIN 13.2 g/dl (12.0-16.0); LYMPHOCYTES # (AUTO) 0.2 X10'3 (1.1-4.8); LYMPHOCYTES % (AUTO) 1.5 % (21-51); MEAN CORPUSCULAR HEMOGLOBIN 31.8 PG (27.0-31.0); MEAN CORPUSCULAR HGB CONC 33.8 g/dL (33.0-36.5); MEAN CORPUSCULAR VOLUME 94.1 FL (78-98); MEAN PLATELET VOLUME 8.5 FL (7.4-10.4); MONOCYTES # (AUTO) 0.2 X10'3 (0-0.9); MONOCYTES % (AUTO) 1.4 % (2-12); NEUTROPHILS # (AUTO) 11.9 X10'3 (1.8-7.7); NEUTROPHILS % (AUTO) 97.1 % (42-75); PLATELET COUNT 202 X10'3 (140-440); RED BLOOD COUNT 4.16 X10'6 (4.20-5.60); RED CELL DISTRIBUTION WIDTH 14.6 % (11.5-14.5); WHITE BLOOD COUNT 12.3 X10'3 (4.5-11.0)
[2021-06-05 06:55] LABS: D-DIMER 0.91 MG/L FEU (0-0.50)
[2021-06-05 07:42] LABS: ALBUMIN 2.8 G/DL (3.4-5.0); ANION GAP 4 (8-16); BLOOD UREA NITROGEN 28 MG/DL (7-18); BUN/CREATININE RATIO 52.8 (6.6-38.0); C-REACTIVE PROTEIN 1.56 MG/DL (0.0-0.5); CALCIUM 9.1 MG/DL (8.5-10.1); CHLORIDE 102 MMOL/L (99-107); CREATININE 0.53 MG/DL (0.40-0.90); GLUCOSE 176 MG/DL (70-104); POTASSIUM 5.4 MMOL/L (3.5-5.1); SODIUM 136 MMOL/L (135-145); TOTAL CARBON DIOXIDE 30.2 MMOL/L (24-32); eGFR > 90 ML/MIN
[2021-06-05] MEDS: nystatin 500,000 unit/5ML UD oral suspension PO SCH ×4 (08:00→20:24)
[2021-06-05] MEDS: docusate sod 100mg capsule PO SCH ×4 (08:00→20:24)
[2021-06-05] MEDS: lactose-reduced food (Ensure Enlive) - 237ml bottle PO SCH ×3 (08:00→18:00)
[2021-06-05] MEDS: sodium chloride 1gm tablet PO SCH ×5 (08:00→20:25)
[2021-06-05] MEDS: guaiFENesin ER 600mg tablet PO SCH ×4 (08:00→20:24)
[2021-06-05] MEDS: K and/or MAG REPLACEMENT MC SCH ×2 (08:20→20:00)
[2021-06-05] MEDS: enoxaparin 30mg/0.3ml syringe SUBCUT SCH ×2 (08:23→19:25)
[2021-06-05] MEDS: enoxaparin 40mg/0.4ml syringe SQ SCH ×2 (08:23→19:25)
--- NOTE | 2021-06-05 09:35 | NUR ---
PAGER ID: [phone] MESSAGE: [id number] Verito Mariscal Patient CT scan is done [facility] [id number]
[2021-06-05 10:00] VITALS: BP 133/68
--- NOTE | 2021-06-05 11:07 | NUR ---
Called a RR this am at 0730, went into give patient medication and she appeared to be "choking, or coughing" her saturation dropped down to 77% with in a minute. Patient recovered, no orders received, then taken to CT Scan for a stat Scan which patient tolerated well.
[2021-06-05 11:59] LABS: ABG BASE EXCESS 3.6 mmol/L (-2.0-2.0); ABG HCO3 29.8 mmol/L (22.0-26.0); ABG OXYGEN SATURATION 91.4 % (94-97); ABG PCO2 (T) 51.6 mmHg (32.0-45.0); ABG PO2 (T) 61.6 mmHg (75.0-100.0); ALLEN'S TEST POSITIVE; FCOHb 0.6 % (0.0-3.9); FMetHb 0.1 % (0.0-1.5); FO2Hb 90.8 % (94-97); TOTAL HEMOGLOBIN 13.5 G/dl (12.0-16.0)
[2021-06-05] MEDS: bisacodyl 10mg suppository rectal RC SCH (13:45)
--- NOTE | 2021-06-05 13:47 | NUR ---
Patient report given to Vida in recovery.
--- NOTE | 2021-06-05 14:45 | NUR ---
F/u 06/05: Pt s/p rapid response this AM possibly choking vs coughing w/ oxygen saturations decreased currently on Bipap and to remain NPO per endless track vehicle mechanic note. Pt PO declined further past 7 days w/ increasing oxygen needs. PO ~44% avg Ensure Enlive TIDWM and 0-25% avg meals ~14 days of 17 day admit not meeting needs. RD d/w RN recommends TPN if physician agreeable given current respiratory requirement and NPO status. LBM 06/03 pending KUB today to rule out constipation vs Ileus per EMR. PN recs below in case to start. Given poor PO hx this admit and mild weakness pt meets minimum non-severe malnutrition criteria; DO notified. Will continue to monitor for further nutrition intervention needs this admit. Recommendations: 1. Given NPO status on BIPAP; consider TPN to meet nutrition needs if physician agreeable. IF TPN Clinimix E 5/20 at 80ml/hr goal w/ separate 250ml 20% intralipids to run for 12 hrs/day /Sat. Would provide 1920ml volume/day, 96g AA, 384g DEX (3.67mg/kg/min), and 1833 avg kcals/day. 2. IF TPN; TG/PALB Q /; daily wts 3. Routine bowel care 4. Weekly scaled weights 5. Advance PO diet per BODY DESIGN CHECKER/ recs to regular as medically indicated Addendum: 06/05/21 at [address] Amended: Links added.
[2021-06-05] MEDS: ziprasidone IM 20mg inj **IM only IM SCH ×2 (15:21→20:00)
[2021-06-05] MEDS: normal saline 1000ml 1,000 ML IV SCH (15:27)
[2021-06-05 18:00] VITALS: BP 115/57
--- NOTE | 2021-06-05 18:11 | NUR ---
Problems reprioritized. Patient report given, questions answered & plan of care reviewed with Chiara MORIN.
[2021-06-05 22:00] VITALS: BP 106/49
[2021-06-06] MEDS: methylPREDNISolone sod succ 125mg/2ml vial IV SCH ×3 (01:28→16:28)
[2021-06-06 02:00] VITALS: BP 135/71
[2021-06-06] MEDS: normal saline 1000ml 1,000 ML IV SCH ×3 (03:50→21:25)
[2021-06-06 06:25] VITALS: BP 135/71
--- NOTE | 2021-06-06 06:25 | NUR ---
Patient in room ORTH[facility] 4022. I have received report from Chiara MORIN and had the opportunity to ask questions and assume patient care.
[2021-06-06 07:45] LABS: BASOPHILS % (AUTO) 0.1 % (0-1); EOSINOPHILS % (AUTO) 0 % (0-6); HEMOGLOBIN 12.8 g/dl (12.0-16.0); LYMPHOCYTES # (AUTO) 0.6 X10'3 (1.1-4.8); MEAN CORPUSCULAR HEMOGLOBIN 31.8 PG (27.0-31.0); MEAN CORPUSCULAR HGB CONC 33.5 g/dL (33.0-36.5); MEAN CORPUSCULAR VOLUME 94.9 FL (78-98); MEAN PLATELET VOLUME 8.6 FL (7.4-10.4); MONOCYTES # (AUTO) 0.5 X10'3 (0-0.9); MONOCYTES % (AUTO) 3.3 % (2-12); NEUTROPHILS # (AUTO) 13.6 X10'3 (1.8-7.7); NEUTROPHILS % (AUTO) 92.6 % (42-75); PLATELET COUNT 225 X10'3 (140-440); RED BLOOD COUNT 4.01 X10'6 (4.20-5.60); RED CELL DISTRIBUTION WIDTH 14.5 % (11.5-14.5); WHITE BLOOD COUNT 14.7 X10'3 (4.5-11.0)
[2021-06-06] MEDS: lactose-reduced food (Ensure Enlive) - 237ml bottle PO SCH ×3 (08:00→18:02)
[2021-06-06] MEDS: nystatin 500,000 unit/5ML UD oral suspension PO SCH ×3 (08:00→21:20)
[2021-06-06] MEDS: SODIUM ZIRCONIUM CYCLOSILICATE 10 GM POWD.PACK PO SCH (08:00)
[2021-06-06] MEDS: K and/or MAG REPLACEMENT MC SCH ×2 (08:00→20:00)
[2021-06-06] MEDS: enoxaparin 30mg/0.3ml syringe SUBCUT SCH ×2 (08:06→21:18)
[2021-06-06] MEDS: enoxaparin 40mg/0.4ml syringe SQ SCH ×2 (08:07→21:19)
[2021-06-06 08:13] LABS: ALANINE AMINOTRANSFERASE 35 U/L (12-78); ALBUMIN 2.8 G/DL (3.4-5.0); ALBUMIN/GLOBULIN RATIO 0.9 (1.1-1.5); ALKALINE PHOSPHATASE 86 IU/L (46-116); ANION GAP 4 (8-16); ASPARTATE AMINO TRANSFERASE 22 U/L (10-37); BILIRUBIN,TOTAL 0.2 MG/DL (0.1-1.0); BLOOD UREA NITROGEN 29 MG/DL (7-18); BUN/CREATININE RATIO 56.9 (6.6-38.0); CALCIUM 9.2 MG/DL (8.5-10.1); CHLORIDE 105 MMOL/L (99-107); CREATININE 0.51 MG/DL (0.40-0.90); GLUCOSE 138 MG/DL (70-104); LACTATE DEHYDROGENASE 526 U/L (81-234); POTASSIUM 5.2 MMOL/L (3.5-5.1); SODIUM 140 MMOL/L (135-145); TOTAL CARBON DIOXIDE 30.9 MMOL/L (24-32); TOTAL PROTEIN 5.8 G/DL (6.4-8.2); eGFR > 90 ML/MIN
[2021-06-06] MEDS: ziprasidone IM 20mg inj **IM only IM SCH ×2 (08:36→21:18)
[2021-06-06 09:15] LABS: D-DIMER 0.55 MG/L FEU (0-0.50)
[2021-06-06 10:31] VITALS: BP 132/67
[2021-06-06] MEDS ORDERED: ondansetron 4mg rapidly disintigrating tab PO PRN (12:20)
[2021-06-06] MEDS: sodium chloride 1gm tablet PO SCH ×2 (12:56→16:30)
[2021-06-06] MEDS: LORazepam 0.5 MG tablet PO PRN (13:10)
--- NOTE | 2021-06-06 13:12 | NUR ---
Patient medicated for reported anxiety. Dr. Mott at bedside to see patient and asked if we could trial her on high flow to see if she can eat, if not we need to supplement nutrition. RT paged.
--- NOTE | 2021-06-06 13:51 | NUR ---
RT at bedside attempting HF nc
--- NOTE | 2021-06-06 16:50 | NUR ---
Transitioned to high flow nasal cannula 60 liters at 100% fi02, has been doing well on this most of the afternoon. Desaturates with coughing, down to the 80s. Patient repositioned into right lateral and sp02 returned to 91%.
[2021-06-06 18:00] VITALS: BP 136/69
--- NOTE | 2021-06-06 18:01 | NUR ---
PAGER ID: [phone] MESSAGE: Markel campos patient has gram negative rods in urine and is complaining of burning. Not on any antibiotics, thanks jori [phone]
--- NOTE | 2021-06-06 18:18 | NUR ---
Report given to Chiara MORIN
[2021-06-06] MEDS ORDERED: ciprofloxacin lact 400MG/200ML 200 ML IV SCH (20:00)
[2021-06-06] MEDS: CefTRIAXone/D5W-Rocephin 1gm 50 ML IV SCH (21:19)
[2021-06-06] MEDS: guaiFENesin ER 600mg tablet PO SCH (21:19)
[2021-06-06 22:00] VITALS: BP 133/72
[2021-06-07] MEDS: methylPREDNISolone sod succ 125mg/2ml vial IV SCH ×4 (00:41→23:17)
[2021-06-07] MEDS: LORazepam 0.5 MG tablet PO PRN ×2 (01:13→09:58)
[2021-06-07 02:00] VITALS: BP 143/64
--- NOTE | 2021-06-07 06:13 | NUR ---
Patient in room [facility]TH[facility] 4022a. I have received report from Chiara MORIN and had the opportunity to ask questions and assume patient care.
[2021-06-07 06:49] VITALS: BP 152/48
[2021-06-07] MEDS: normal saline 1000ml 1,000 ML IV SCH ×2 (07:25→20:24)
[2021-06-07] MEDS: K and/or MAG REPLACEMENT MC SCH ×2 (08:00→20:00)
[2021-06-07] MEDS: ziprasidone IM 20mg inj **IM only IM SCH ×2 (08:00→20:00)
[2021-06-07] MEDS: SODIUM ZIRCONIUM CYCLOSILICATE 10 GM POWD.PACK PO SCH (08:00)
[2021-06-07] MEDS: lactose-reduced food (Ensure Enlive) - 237ml bottle PO SCH ×3 (08:00→18:00)
[2021-06-07] MEDS: nystatin 500,000 unit/5ML UD oral suspension PO SCH ×3 (08:00→20:24)
[2021-06-07] MEDS: sodium chloride 1gm tablet PO SCH (08:00)
[2021-06-07] MEDS: enoxaparin 30mg/0.3ml syringe SUBCUT SCH ×2 (09:59→20:26)
[2021-06-07] MEDS: enoxaparin 40mg/0.4ml syringe SQ SCH ×2 (09:59→20:27)
[2021-06-07] MEDS: guaiFENesin ER 600mg tablet PO SCH ×2 (10:00→20:24)
[2021-06-07] MEDS: LORazepam 2 mg/ml vial IV PRN ×2 (12:52→14:52)
--- NOTE | 2021-06-07 14:32 | NUR ---
F/u 2/2: Pt PO remains poor 0-25% avg meals placed on 60L HFNC from prior BIPAP w/ poor nutrition intake since admit 18 days not meeting needs. Pt advanced to SB6/thin diet but gets SOB w/ eating per DELICATE FABRICS PRESSER note this AM. AGUS d/w RN who reports pt receiving constant encouragement to eat. AGUS paged regarding NG feeds if agreeable given malnutrition status. Recommendations: 1. Given poor PO intake 18 days on 60L HFNC; consider NG feeds to optimize nutrition status 2. IF TF; Vital AF at 70ml/hr would provide 1680ml volume/day, 2016 kcals, 1361ml free water, and 126g protein. 3. IF TF; additional water flush 125ml Q4H 4. Routine bowel care 5. Weekly scaled weights 6. Advance PO diet per DELICATE FABRICS PRESSER/MD recs to regular as medically indicated Addendum: 06/07/21 at [address] Amended: Links added.
--- NOTE | 2021-06-07 15:37 | NUR ---
TF Consult: Pt PO remains poor 0-25% avg meals placed on 60L HFNC from prior BIPAP w/ poor nutrition intake since admit 18 days not meeting needs. Pt advanced to SB6/thin diet but gets SOB w/ eating per ROUND BONER note this AM. AGUS d/w RN who reports pt receiving constant encouragement to eat. RD paged MD regarding NG feeds if agreeable given malnutrition status; MD return called AGUS and is agreeable w/ TF for sole nutrition at this time. TF recs below given pt needs. LBM 06/05 receiving dulcolax Q72H per EMR. Will continue to monitor for TF tolerance and further nutrition intervention needs this admit. Recommendations: 1. Continuous NGTF per MD using Vital AF at 70ml/hr would provide 1680ml volume/day, 2016 kcals, 1361ml free water, and 126g protein. 2. PALB Q /; daily wts 3. additional water flush 125ml Q4H 4. Routine bowel care 5. Weekly scaled weights 6. Advance PO diet per ROUND BONER/MD recs to regular as medically indicated; prior SB6/thin though SOB when eats per ROUND BONER and poor PO meal intake hx this admit Addendum: 06/07/21 at [address] Amended: Links added.
--- NOTE | 2021-06-07 17:55 | NUR ---
PATIENT LAID ON BOTH SIDES AND SAT IN THE TRIPOD POSITION FOR A FEW HOURS TO RELIEVE PRESSURE SINCE SHE IS UNABLE TO PRONE.
[2021-06-07 18:00] VITALS: BP 167/70
--- NOTE | 2021-06-07 18:30 | NUR ---
Problems reprioritized. Patient report given, questions answered & plan of care reviewed with MARTHA MORIN.
--- NOTE | 2021-06-07 19:01 | NUR ---
Spoke with Dr. Mc about Corpak order with tube feeding. Expressed concerns for placing a tube in patients nostril when they are sore and slightly bloody. Patient on high flow nasal cannula at 75L. I am concerned to place a tube in nostril and obstruct the oxygen flow.Patient sating low 90's at this time. Per Dr. Mc it's ok to hold off on placing Corpak tonight and to speak to Respiratory about the nasal issue.
--- NOTE | 2021-06-07 19:20 | NUR ---
Spoke with respiratory and they suggest exploring other options for nutrition then occluding the oxygen flow of the nostril. Also concern that the Corpak will cause a leak if patient placed back on bipap mask. Suggested to give patient nasal spray to help with dryness
[2021-06-07] MEDS: CefTRIAXone/D5W-Rocephin 1gm 50 ML IV SCH (20:25)
[2021-06-07 22:00] VITALS: BP 162/68
[2021-06-07] MEDS: salt irrigation nasal spray 45 ML SPRAY NS PRN (22:27)
[2021-06-08] VITALS (8 sets, daily range): BP systolic 136–167; BP diastolic 61–81
--- NOTE | 2021-06-08 06:42 | NUR ---
Problems reprioritized. Patient report given, questions answered & plan of care reviewed with Milagro MORIN.
--- NOTE | 2021-06-08 06:42 | NUR ---
Patient in room ORTHO 4022. I have received report from Mahnaz MORIN and had the opportunity to ask questions and assume patient care.
[2021-06-08] MEDS: K and/or MAG REPLACEMENT MC SCH ×2 (07:36→20:00)
[2021-06-08] MEDS: lactose-reduced food (Ensure Enlive) - 237ml bottle PO SCH ×5 (07:37→17:50)
[2021-06-08] MEDS: nystatin 500,000 unit/5ML UD oral suspension PO SCH ×3 (07:41→20:10)
[2021-06-08] MEDS: sodium chloride 1gm tablet PO SCH (07:41)
[2021-06-08] MEDS: methylPREDNISolone sod succ 125mg/2ml vial IV SCH (07:41)
[2021-06-08] MEDS: guaiFENesin ER 600mg tablet PO SCH ×2 (07:41→20:10)
[2021-06-08] MEDS: enoxaparin 30mg/0.3ml syringe SUBCUT SCH (07:42)
[2021-06-08] MEDS: enoxaparin 40mg/0.4ml syringe SQ SCH ×2 (07:42→20:13)
[2021-06-08 07:57] LABS: BASOPHILS % (AUTO) 0 % (0-1); HEMOGLOBIN 12.9 g/dl (12.0-16.0); LYMPHOCYTES # (AUTO) 0.5 X10'3 (1.1-4.8); MONOCYTES # (AUTO) 0.3 X10'3 (0-0.9); WHITE BLOOD COUNT 11.3 X10'3 (4.5-11.0)
[2021-06-08 08:00] LABS: EOSINOPHILS % (AUTO) 0 % (0-6); LYMPHOCYTES % (AUTO) 4.2 % (21-51); MEAN CORPUSCULAR HEMOGLOBIN 31.9 PG (27.0-31.0); MEAN CORPUSCULAR HGB CONC 33.9 g/dL (33.0-36.5); MONOCYTES % (AUTO) 2.9 % (2-12); NEUTROPHILS # (AUTO) 10.5 X10'3 (1.8-7.7); NEUTROPHILS % (AUTO) 92.9 % (42-75); PLATELET COUNT 194 X10'3 (140-440); RED BLOOD COUNT 4.04 X10'6 (4.20-5.60); RED CELL DISTRIBUTION WIDTH 14.9 % (11.5-14.5)
[2021-06-08] MEDS: ziprasidone IM 20mg inj **IM only IM SCH ×2 (08:00→20:16)
[2021-06-08 08:32] LABS: ALANINE AMINOTRANSFERASE 49 U/L (12-78); ALBUMIN 2.9 G/DL (3.4-5.0); ALKALINE PHOSPHATASE 82 IU/L (46-116); ANION GAP 5 (8-16); ASPARTATE AMINO TRANSFERASE 23 U/L (10-37); BILIRUBIN,TOTAL 0.3 MG/DL (0.1-1.0); BLOOD UREA NITROGEN 22 MG/DL (7-18); CALCIUM 9.1 MG/DL (8.5-10.1); CHLORIDE 103 MMOL/L (99-107); CREATININE 0.44 MG/DL (0.40-0.90); GLUCOSE 138 MG/DL (70-104); POTASSIUM 4.8 MMOL/L (3.5-5.1); PREALBUMIN 19.9 MG/DL (19-36); SODIUM 137 MMOL/L (135-145); TOTAL PROTEIN 5.7 G/DL (6.4-8.2); eGFR > 90 ML/MIN
[2021-06-08 08:41] LABS: PLATELET ESTIMATE NORMAL; TOTAL CELLS COUNTED 100
[2021-06-08 09:09] LABS: C-REACTIVE PROTEIN < 0.05 MG/DL (0.0-0.5)
[2021-06-08 10:09] LABS: D-DIMER 0.45 MG/L FEU (0-0.50)
[2021-06-08] MEDS: LORazepam 0.5 MG tablet PO PRN (11:13)
[2021-06-08] MEDS: normal saline 1000ml 1,000 ML IV SCH ×2 (11:15→12:31)
[2021-06-08] MEDS: lisinopril 10 MG tablet PO SCH (11:15)
[2021-06-08] MEDS: bisacodyl 10mg suppository rectal RC SCH (12:15)
--- NOTE | 2021-06-08 16:12 | NUR ---
TPN Consult: Pt unable to have corpak placement without desaturations on 70L high flow vs BIPAP/CPAP per RN/EMR today. PO meals remains poor though pt does try to consume what she can of meals/Ensures per RN. AGUS d/w RN and MD nutrition strategies; at this time pt to have PICC placement for TPN to meet main nutrition needs while PO diet to remain active for pt quality of life. Prior SB6/thin liquids cancelled; AGUS gaines/w RN regarding restarting PO meals per MD discretion. Pt is pending f/u DRUM SANDER OFFBEARER BSS recs tomorrow AM for further texture modifications given respiratory status. TPN recs below given pt needs; will monitor for tolerance, signs of refeeding syndrome, and further TPN adjustment needs pending further PO trends this admit. Recommendations: 1. Advance PO diet per DRUM SANDER OFFBEARER/MD recs to regular as medically indicated; prior SB6/thin though SOB when eats per latest DRUM SANDER OFFBEARER note 2. Ensure Enlive TIDWM w/ PO meals for quality of life reasons; pt attempts to eat as much as tolerated given current oxygen demands 3. Continuous TPN via PICC line per MD to meet main nutrition needs using Clinimix E 5/20 at 80ml/hr goal w/ separate 250ml 20% intralipids to run for 12 hours /Sat at 20.83ml/hr. In total; to provide 1920ml volume/day, 96g AA, 384g DEX (3.67mg/kg/min), and avg 1833 kcals/day. 4. TG/PALB Q /; daily wts 5. Monitor for PN tolerance, signs of refeeding syndrome, and further PN adjustment needs pending PO trends 6. routine bowel care Addendum: 06/08/21 at [address] Amended: Links added.
[2021-06-08] MEDS ORDERED: magnesium 4gm in 100ml NS 100 ML IV PRN (16:25)
[2021-06-08] MEDS ORDERED: magnesium 2GM in 50ml NS 50 ML IV PRN (16:25)
[2021-06-08] MEDS ORDERED: Dextrose 10%-water IV solution 1,000 ML IV PRN (16:25)
[2021-06-08] MEDS ORDERED: magnesium Cl slow-release 64mg tablet PO PRN (16:25)
[2021-06-08 17:22] LABS: PHOSPHORUS 2.6 MG/DL (2.3-4.5); PREALBUMIN 19.8 MG/DL (19-36)
--- NOTE | 2021-06-08 18:24 | NUR ---
Patient in room ORTHO 4022. I have received report from Milagro MORIN and had the opportunity to ask questions and assume patient care.
[2021-06-08] MEDS: ZINC/COPPER/MANGANESE/SELENIUM 0.5 ML, chromic chloride inj. 5 MCG in AA 5%/CALCIUM/LYT... IV SCH (20:00)
[2021-06-08] MEDS: methylPREDNISolone sod succ/PF 40mg inj. IV SCH (20:12)
[2021-06-08] MEDS: CefTRIAXone/D5W-Rocephin 1gm 50 ML IV SCH (20:12)
[2021-06-08] MEDS: guaiFENesin/codeine phos 10ml UD oral syrup PO PRN (22:15)
[2021-06-08] MEDS: benzonatate 100mg capsule PO PRN (22:15)
--- NOTE | 2021-06-08 23:00 | NUR ---
At 2215 patient started coughing and desat to high 70's low 80's. Placed patient on her side and placed non rebreather. Unable to get patient's saturations up. RT paged and bipap placed. Patients saturations 94% and patient in no distress. Patient did start to have a bloody noses. HOB elevated, will continue to monitor.
[2021-06-09 02:00] VITALS: BP 109/45
[2021-06-09] MEDS: normal saline 1000ml 1,000 ML IV SCH (03:18)
[2021-06-09 06:00] VITALS: BP 136/60
--- NOTE | 2021-06-09 06:19 | NUR ---
Problems reprioritized. Patient report given, questions answered & plan of care reviewed with Milagro MORIN.
--- NOTE | 2021-06-09 06:35 | NUR ---
Patient in room ORTHO 4022. I have received report from Mahnaz MORIN and had the opportunity to ask questions and assume patient care.
[2021-06-09] MEDS: ziprasidone IM 20mg inj **IM only IM SCH ×2 (06:39→12:45)
[2021-06-09] MEDS: sodium chloride 1gm tablet PO SCH (07:59)
[2021-06-09] MEDS: nystatin 500,000 unit/5ML UD oral suspension PO SCH ×3 (07:59→19:52)
[2021-06-09] MEDS: guaiFENesin ER 600mg tablet PO SCH ×2 (07:59→19:51)
[2021-06-09] MEDS: methylPREDNISolone sod succ/PF 40mg inj. IV SCH ×2 (07:59→19:52)
[2021-06-09] MEDS: enoxaparin 40mg/0.4ml syringe SQ SCH ×2 (08:00→19:51)
[2021-06-09] MEDS: K and/or MAG REPLACEMENT MC SCH ×2 (08:00→19:18)
[2021-06-09] MEDS: lactose-reduced food (Ensure Enlive) - 237ml bottle PO SCH ×3 (08:01→18:37)
[2021-06-09] MEDS: lisinopril 10 MG tablet PO SCH (08:07)
[2021-06-09 09:06] LABS: D-DIMER 0.47 MG/L FEU (0-0.50)
[2021-06-09 10:00] VITALS: BP 112/66
[2021-06-09 11:10] LABS: C-REACTIVE PROTEIN 0.37 MG/DL (0.0-0.5); MAGNESIUM 2.1 MG/DL (1.5-2.4); PHOSPHORUS 3.9 MG/DL (2.3-4.5)
[2021-06-09] MEDS: LORazepam 0.5 MG tablet PO PRN ×2 (11:24→19:51)
[2021-06-09 14:00] VITALS: BP 142/65
--- NOTE | 2021-06-09 17:42 | NUR ---
[facility] re: TPN in refrigerator that says "do not use beyond 06/09/21 at 1730". Pharmacist instructed to spike bag now and bag would be good for 24 hours.
[2021-06-09 18:00] VITALS: BP 152/73
[2021-06-09 18:06] LABS: ALANINE AMINOTRANSFERASE 50 U/L (12-78); ALBUMIN 2.9 G/DL (3.4-5.0); ALBUMIN/GLOBULIN RATIO 1.2 (1.1-1.5); ALKALINE PHOSPHATASE 79 IU/L (46-116); ANION GAP 10 (8-16); ASPARTATE AMINO TRANSFERASE 26 U/L (10-37); BILIRUBIN,TOTAL 0.2 MG/DL (0.1-1.0); BLOOD UREA NITROGEN 21 MG/DL (7-18); BUN/CREATININE RATIO 36.2 (6.6-38.0); CALCIUM 9.4 MG/DL (8.5-10.1); CHLORIDE 102 MMOL/L (99-107); CREATININE 0.58 MG/DL (0.40-0.90); GLUCOSE 144 MG/DL (70-104); POTASSIUM 4.9 MMOL/L (3.5-5.1); SODIUM 137 MMOL/L (135-145); TOTAL CARBON DIOXIDE 24.8 MMOL/L (24-32); TOTAL PROTEIN 5.3 G/DL (6.4-8.2); eGFR > 90 ML/MIN
--- NOTE | 2021-06-09 18:15 | NUR ---
Patient in room [facility]TH[facility] 4022. I have received report from PATIENCE Humphrey and had the opportunity to ask questions and assume patient care.
--- NOTE | 2021-06-09 18:29 | NUR ---
Problems reprioritized. Patient report given, questions answered & plan of care reviewed with Akua MORIN.
[2021-06-09] MEDS: ZINC/COPPER/MANGANESE/SELENIUM 0.5 ML, chromic chloride inj. 5 MCG in AA 5%/CALCIUM/LYT... IV SCH (18:37)
[2021-06-09] MEDS: CefTRIAXone/D5W-Rocephin 1gm 50 ML IV SCH (19:51)
[2021-06-09] MEDS: salt irrigation nasal spray 45 ML SPRAY NS PRN (19:52)
[2021-06-09 22:00] VITALS: BP 154/63
[2021-06-09] MEDS: guaiFENesin/codeine phos 10ml UD oral syrup PO PRN (23:12)
--- NOTE | 2021-06-09 23:30 | NUR ---
Rt told me that she increased the oxygen to 70 liters HF since patient was still in the high 80's and patient declined to wear the bipap but per Rt she was orientated and awake and did not appear to be in distress.
[2021-06-10] MEDS ORDERED: glucagon, human recombinant 1mg kit SUBCUT PRN (00:05)
[2021-06-10] MEDS ORDERED: dextrose 50%-water 50ml dispensing syringe IV PRN ×2 (00:05)
[2021-06-10] MEDS ORDERED: dextrose ORAL solution 15 GM/59 ML bottle PO PRN ×2 (00:05)
[2021-06-10] MEDS: insulin regular, human U-100 3ml vial - multi-dose SQ SCH ×4 (01:03→17:37)
[2021-06-10 02:00] VITALS: BP 126/58
[2021-06-10] MEDS: normal saline 1000ml 1,000 ML IV SCH ×2 (04:25→13:09)
[2021-06-10 05:00] VITALS: BP 147/59
[2021-06-10] MEDS: magnesium hydroxide 30ml (MOM) UD suspension PO PRN (05:16)
[2021-06-10 05:56] LABS: D-DIMER 0.45 MG/L FEU (0-0.50)
[2021-06-10 05:59] LABS: HEMOGLOBIN A1C 6.8 % (4.5-6.2)
[2021-06-10 06:01] LABS: ALANINE AMINOTRANSFERASE 43 U/L (12-78); ALBUMIN 2.6 G/DL (3.4-5.0); ALKALINE PHOSPHATASE 79 IU/L (46-116); ANION GAP 6 (8-16); ASPARTATE AMINO TRANSFERASE 23 U/L (10-37); BILIRUBIN,TOTAL 0.2 MG/DL (0.1-1.0); BLOOD UREA NITROGEN 17 MG/DL (7-18); BUN/CREATININE RATIO 36.2 (6.6-38.0); C-REACTIVE PROTEIN 1.41 MG/DL (0.0-0.5); CALCIUM 9.5 MG/DL (8.5-10.1); CHLORIDE 100 MMOL/L (99-107); CREATININE 0.47 MG/DL (0.40-0.90); GLUCOSE 151 MG/DL (70-104); MAGNESIUM 2.1 MG/DL (1.5-2.4); PHOSPHORUS 2.9 MG/DL (2.3-4.5); POTASSIUM 4.7 MMOL/L (3.5-5.1); SODIUM 136 MMOL/L (135-145); TOTAL CARBON DIOXIDE 30.4 MMOL/L (24-32); TOTAL PROTEIN 5.2 G/DL (6.4-8.2); eGFR > 90 ML/MIN
--- NOTE | 2021-06-10 06:37 | NUR ---
Problems reprioritized. Patient report given, questions answered & plan of care reviewed with PATIENCE Prather.
[2021-06-10] MEDS: methylPREDNISolone sod succ/PF 40mg inj. IV SCH ×2 (08:10→19:19)
[2021-06-10] MEDS: enoxaparin 40mg/0.4ml syringe SQ SCH ×2 (08:11→19:19)
[2021-06-10] MEDS: lisinopril 10 MG tablet PO SCH (08:12)
[2021-06-10] MEDS: sodium chloride 1gm tablet PO SCH (08:13)
[2021-06-10] MEDS: guaiFENesin ER 600mg tablet PO SCH ×2 (08:14→19:18)
[2021-06-10] MEDS: nystatin 500,000 unit/5ML UD oral suspension PO SCH ×3 (08:28→19:18)
[2021-06-10] MEDS: K and/or MAG REPLACEMENT MC SCH ×2 (08:29→19:15)
[2021-06-10] MEDS: lactose-reduced food (Ensure Enlive) - 237ml bottle PO SCH ×3 (08:29→18:19)
[2021-06-10 10:00] VITALS: BP 130/70
[2021-06-10] MEDS: LORazepam 0.5 MG tablet PO PRN ×2 (11:46→19:18)
[2021-06-10] MEDS: salt irrigation nasal spray 45 ML SPRAY NS PRN (11:47)
[2021-06-10] MEDS: ZINC/COPPER/MANGANESE/SELENIUM 0.5 ML, chromic chloride inj. 5 MCG in AA 5%/CALCIUM/LYT... IV SCH (13:18)
[2021-06-10 14:00] VITALS: BP 132/67
--- NOTE | 2021-06-10 14:39 | NUR ---
Reassessment: Pt s/p f/u BSS 2/[address]s minced and moist food with thin liquids as pt gets SOB easily when chewing. Pt documented with ~75% PO intake of first meal with texture modification however with 0% PO intake the following meals with the exception of 25-50% PO intake of milk. Pt continues with good acceptance of Ensure Enlive with ~94% PO intake of ONS. Given poor PO intake of meals pt continues receiving TPN which is meeting minimum estimated nutrient needs. Noted pt with A1c 6.8% with no PMH DM. TC to RN to inform of A1c and report that RD unable to provide DM education until pt has received official DM dx by physician. Per EMR pt constipated with LBM 06/05. Pt with rx for Dulcolax suppository Q72H however has not been given. Pt received PRN MoM today. No changes to nutrition interventions at this time. Will continue to follow closely. Recommendations: 1. Continue MM5/thin liquid diet per ST recs; advance to regular diet as medically indicated 2. Ensure Enlive TIDWM for QOL; pt attempts to eat as much as tolerated given current oxygen demands 3. Continuous TPN via PICC line per MD to meet main nutrition needs using Clinimix-E 09/22 at 80ml/hr goal w/ separate 250ml 20% intralipids to run for 12 hours /Sat at 20.83ml/hr. In total; to provide 1920ml volume/day, 96g AA, 384g DEX (3.67mg/kg/min), and avg 1833 kcal/day. 4. TG/PALB q / 5. Daily scaled wts 6. Routine bowel care; utilize PRN bowel care 7. Monitor need for DM education once stable following official DM dx by physician; A1c 6.8% with no PMH DM Addendum: 06/10/21 at [address] Amended: Links added.
[2021-06-10 18:00] VITALS: BP 141/71
--- NOTE | 2021-06-10 18:00 | NUR ---
Patient in room ORTHO 4022. I have received report from PATIENCE Prather and had the opportunity to ask questions and assume patient care.
--- NOTE | 2021-06-10 18:17 | NUR ---
Problems reprioritized. Patient report given, questions answered & plan of care reviewed with PATIENCE Fatima.
[2021-06-10] MEDS: CefTRIAXone/D5W-Rocephin 1gm 50 ML IV SCH (19:18)
[2021-06-10 22:00] VITALS: BP 143/61
[2021-06-10] MEDS: guaiFENesin/codeine phos 10ml UD oral syrup PO PRN (23:31)
[2021-06-11] MEDS: insulin regular, human U-100 3ml vial - multi-dose SQ SCH ×4 (00:09→20:24)
[2021-06-11 02:00] VITALS: BP 154/64
[2021-06-11] MEDS: ZINC/COPPER/MANGANESE/SELENIUM 0.5 ML, chromic chloride inj. 5 MCG in AA 5%/CALCIUM/LYT... IV SCH ×3 (02:03→14:32)
[2021-06-11] MEDS: magnesium hydroxide 30ml (MOM) UD suspension PO PRN (03:45)
[2021-06-11 05:30] VITALS: BP 158/72
--- NOTE | 2021-06-11 06:30 | NUR ---
Patient in room ORTHO 4022. I have received report from PATIENCE Fatima and had the opportunity to ask questions and assume patient care.
--- NOTE | 2021-06-11 06:47 | NUR ---
Problems reprioritized. Patient report given, questions answered & plan of care reviewed with PATIENCE Rivera.
[2021-06-11 07:49] LABS: D-DIMER 0.53 MG/L FEU (0-0.50)
[2021-06-11] MEDS: K and/or MAG REPLACEMENT MC SCH ×2 (08:00→20:00)
[2021-06-11 08:12] LABS: ALANINE AMINOTRANSFERASE 35 U/L (12-78); ALBUMIN 2.4 G/DL (3.4-5.0); ALBUMIN/GLOBULIN RATIO 0.9 (1.1-1.5); ALKALINE PHOSPHATASE 71 IU/L (46-116); ANION GAP 3 (8-16); ASPARTATE AMINO TRANSFERASE 20 U/L (10-37); BILIRUBIN,TOTAL 0.2 MG/DL (0.1-1.0); BLOOD UREA NITROGEN 17 MG/DL (7-18); BUN/CREATININE RATIO 45.9 (6.6-38.0); C-REACTIVE PROTEIN 0.94 MG/DL (0.0-0.5); CALCIUM 8.9 MG/DL (8.5-10.1); CHLORIDE 96 MMOL/L (99-107); CREATININE 0.37 MG/DL (0.40-0.90); GLUCOSE 163 MG/DL (70-104); MAGNESIUM 2.1 MG/DL (1.5-2.4); POTASSIUM 4.9 MMOL/L (3.5-5.1); SODIUM 131 MMOL/L (135-145); TOTAL CARBON DIOXIDE 32.5 MMOL/L (24-32); TOTAL PROTEIN 5.2 G/DL (6.4-8.2); eGFR > 90 ML/MIN
[2021-06-11] MEDS: lactose-reduced food (Ensure Enlive) - 237ml bottle PO SCH ×3 (08:41→18:00)
[2021-06-11 10:00] VITALS: BP 127/62
[2021-06-11] MEDS: sodium chloride 1gm tablet PO SCH (11:11)
[2021-06-11] MEDS: lisinopril 10 MG tablet PO SCH (11:12)
[2021-06-11] MEDS: nystatin 500,000 unit/5ML UD oral suspension PO SCH ×3 (11:12→20:32)
[2021-06-11] MEDS: guaiFENesin ER 600mg tablet PO SCH ×2 (11:12→19:25)
[2021-06-11] MEDS: methylPREDNISolone sod succ/PF 40mg inj. IV SCH ×2 (11:12→19:25)
[2021-06-11] MEDS: enoxaparin 40mg/0.4ml syringe SQ SCH ×2 (11:13→19:25)
[2021-06-11] MEDS: LORazepam 0.5 MG tablet PO PRN ×2 (11:21→22:40)
[2021-06-11] MEDS: normal saline 1000ml 1,000 ML IV SCH (11:31)
[2021-06-11] MEDS: bisacodyl 10mg suppository rectal RC SCH (12:15)
[2021-06-11 14:00] VITALS: BP 145/66
[2021-06-11 18:00] VITALS: BP_SYST 156; BP_SYST 161; BP_DIAS 75; BP_DIAS 77
--- NOTE | 2021-06-11 18:45 | NUR ---
Problems reprioritized. Patient report given, questions answered & plan of care reviewed with PATIENCE Morales.
[2021-06-11] MEDS: CefTRIAXone/D5W-Rocephin 1gm 50 ML IV SCH (19:25)
[2021-06-11] MEDS: guaiFENesin/codeine phos 10ml UD oral syrup PO PRN (20:07)
[2021-06-11 22:00] VITALS: BP_SYST 156; BP_SYST 161; BP_DIAS 75; BP_DIAS 77
[2021-06-11] MEDS: benzonatate 100mg capsule PO PRN (22:40)
[2021-06-12] VITALS (14 sets, daily range): BP systolic 106–155; BP diastolic 41–67
--- NOTE | 2021-06-12 | NUR ---
[address] Required increased sedation, patient peak pressure on ventilator, RT called to assist, charge nurse at bedside as well. After increased sedation and additional propping with pillows patient tolerating well. Addendum: 06/13/21 at 0033 by Chiara Carvajal RN WRONG TIME 06/12/21 2315 pt placed prone
[2021-06-12] MEDS: insulin regular, human U-100 3ml vial - multi-dose SQ SCH ×4 (01:40→21:41)
[2021-06-12] MEDS: ZINC/COPPER/MANGANESE/SELENIUM 0.5 ML, chromic chloride inj. 5 MCG in AA 5%/CALCIUM/LYT... IV SCH (03:25)
[2021-06-12 04:42] LABS: UREA NITROGEN 24HR,URINE 15.7 GM/24HR (7-20)
[2021-06-12 06:36] LABS: D-DIMER 0.59 MG/L FEU (0-0.50)
--- NOTE | 2021-06-12 06:54 | NUR ---
Problems reprioritized. Patient report given, questions answered & plan of care reviewed with PATIENCE CARRILLO.
[2021-06-12 06:58] LABS: EOSINOPHILS % (AUTO) 0 % (0-6); MEAN PLATELET VOLUME 9.4 FL (7.4-10.4)
[2021-06-12 07:00] LABS: BASOPHILS % (AUTO) 0 % (0-1); HEMOGLOBIN 11.7 g/dl (12.0-16.0); LYMPHOCYTES # (AUTO) 0.2 X10'3 (1.1-4.8); LYMPHOCYTES % (AUTO) 1.8 % (21-51); MEAN CORPUSCULAR HEMOGLOBIN 32.4 PG (27.0-31.0); MEAN CORPUSCULAR HGB CONC 34.5 g/dL (33.0-36.5); MEAN CORPUSCULAR VOLUME 93.8 FL (78-98); MONOCYTES # (AUTO) 0.5 X10'3 (0-0.9); MONOCYTES % (AUTO) 3.9 % (2-12); NEUTROPHILS # (AUTO) 12.2 X10'3 (1.8-7.7); NEUTROPHILS % (AUTO) 94.3 % (42-75); PLATELET COUNT 152 X10'3 (140-440); RED BLOOD COUNT 3.63 X10'6 (4.20-5.60); RED CELL DISTRIBUTION WIDTH 14.5 % (11.5-14.5)
[2021-06-12 07:28] LABS: ALANINE AMINOTRANSFERASE 40 U/L (12-78); ALBUMIN 2.4 G/DL (3.4-5.0); ALBUMIN/GLOBULIN RATIO 0.8 (1.1-1.5); ALKALINE PHOSPHATASE 72 IU/L (46-116); ANION GAP 4 (8-16); ASPARTATE AMINO TRANSFERASE 21 U/L (10-37); BILIRUBIN,TOTAL 0.2 MG/DL (0.1-1.0); BLOOD UREA NITROGEN 20 MG/DL (7-18); BUN/CREATININE RATIO 83.3 (6.6-38.0); C-REACTIVE PROTEIN 3.57 MG/DL (0.0-0.5); CALCIUM 8.8 MG/DL (8.5-10.1); CHLORIDE 92 MMOL/L (99-107); CREATININE 0.24 MG/DL (0.40-0.90); GLUCOSE 131 MG/DL (70-104); MAGNESIUM 2.1 MG/DL (1.5-2.4); POTASSIUM 5.2 MMOL/L (3.5-5.1); PREALBUMIN 17.1 MG/DL (19-36); SODIUM 127 MMOL/L (135-145); TOTAL CARBON DIOXIDE 31.4 MMOL/L (24-32); TOTAL PROTEIN 5.3 G/DL (6.4-8.2); TRIGLYCERIDES 61 MG/DL (20-135); eGFR > 90 ML/MIN
[2021-06-12 07:49] LABS: PLATELET ESTIMATE NORMAL; TOTAL CELLS COUNTED 100
[2021-06-12 07:50] LABS: BURR CELLS FEW
[2021-06-12] MEDS: LORazepam 2 mg/ml vial IV PRN (07:58)
[2021-06-12] MEDS: methylPREDNISolone sod succ/PF 40mg inj. IV SCH ×2 (07:59→16:38)
[2021-06-12] MEDS: K and/or MAG REPLACEMENT MC SCH ×2 (08:00→19:35)
[2021-06-12] MEDS: nystatin 500,000 unit/5ML UD oral suspension PO SCH ×3 (08:00→20:54)
[2021-06-12] MEDS: sodium chloride 1gm tablet PO SCH (08:00)
[2021-06-12] MEDS: guaiFENesin ER 600mg tablet PO SCH ×2 (08:00→19:34)
[2021-06-12] MEDS: lisinopril 10 MG tablet PO SCH (08:00)
[2021-06-12] MEDS: lactose-reduced food (Ensure Enlive) - 237ml bottle PO SCH ×3 (08:00→18:00)
[2021-06-12] MEDS: normal saline 1000ml 1,000 ML IV SCH (10:23)
[2021-06-12 10:50] LABS: ABG BASE EXCESS 0.9 mmol/L (-2.0-2.0); ABG HCO3 29.9 mmol/L (22.0-26.0); ABG OXYGEN SATURATION 93.6 % (94-97); ABG PCO2 (T) 71.5 mmHg (32.0-45.0); ABG PO2 (T) 76.5 mmHg (75.0-100.0); ALLEN'S TEST POSITIVE; FMetHb 0.3 % (0.0-1.5); FO2Hb 92.4 % (94-97); PATIENT TEMPERATURE 37.4
[2021-06-12] MEDS: enoxaparin 40mg/0.4ml syringe SQ SCH ×2 (10:50→20:24)
--- NOTE | 2021-06-12 10:58 | NUR ---
PAGER ID: [phone] MESSAGE: Dr. Lara, I was told Dr Hernadez also wants [id number] Kalyn Zamora in [facility] because of her abg, her c02 is [address] Hernadez is [phone]. [place] [address] [facility]
[2021-06-12] MEDS ORDERED: furosemide 40mg/4ml inj IV ONE (13:15)
--- NOTE | 2021-06-12 13:47 | NUR ---
PT Kalyn Zamora Rm 4026 K 5.5- NA 127- Lynette/PATIENCE 2659
[2021-06-12] MEDS ORDERED: ipratropium/albuterol 3ml nebule NEB PRN (14:35)
[2021-06-12] MEDS ORDERED: dexmedetomidin/NS 400mcg/100ml 100 ML IV PRN (14:35)
[2021-06-12] MEDS ORDERED: albuterol 2.5 MG/3 ML nebule NEB PRN (14:35)
[2021-06-12] MEDS ORDERED: MIDAZolam 5mg/ml 2ml vial IV ONE (14:50)
[2021-06-12] MEDS ORDERED: etomidate 2mg/ml inj. IV ONE (14:50)
[2021-06-12] MEDS ORDERED: NORepinephrine 8mg/ 250ml NS 250 ML IV ONE (14:53)
[2021-06-12] MEDS ORDERED: dexmedetomidine/D5W 100mL 100 ML IV PRN (14:56)
--- NOTE | 2021-06-12 15:09 | NUR ---
Transfer to ICU/Intubation Patient arrives weak and obtunded. Patient has 250 in junior (jina/clear) and beginning vitals are 99<3, 131/67(83), 23 R on BIPAP of @ 100% satting at 93%. Patient agrees to intubation because she was not ventilating well at all. Dr. Cho is bedside and care team preps to intubate. Jackie Neal administers 6 mg of Versed, 20 mg of Etomidate, and 50 mg of Rocuronium via patient's PICC line for intubation. Vitals prior to intubation are as follows: 97 <3, 93%,24R, 121/62 (81). Patient is intubated at 1451 with a 7.5 ETT. We do achieve color change with end tidal, however, bedside state chest xray reveals that the ETT is in the right, main branch. RT pulls ETT from 25 to 23 cm at bottom lip. Patient is expectedly hypotensive after intubation, therefore, Dr. Hernadez orders me to get Levophed which I start at .1mcg/kg/min. This runs for 5 minutes and patient's pressure rebounds, therefore, it is put on standby. Fentanyl is started for sedation. Patient has large clot in left nare and johnathan bleeding post intubation. Vent settings are A/C, 85%, Vt 400, 24R, and PEEP of 12. Patient is pulling good volumes at this time, however, she is bucking the vent somewhat. We will titrate up on sedation. Addendum: 06/12/21 at 1702 by Rosalind Conti RN BGM RN that gave report stated she was giving patient her insulin prior to transfer.
[2021-06-12] MEDS ORDERED: midazolam 1 mg/ML 2ml injection ONE (15:25)
[2021-06-12 15:41] LABS: ABG BASE EXCESS 3.2 mmol/L (-2.0-2.0); ABG HCO3 34.2 mmol/L (22.0-26.0); ABG OXYGEN SATURATION 95.6 % (94-97); ABG PCO2 (T) 93.3 mmHg (32.0-45.0); ABG PO2 (T) 92.8 mmHg (75.0-100.0); ALLEN'S TEST POSITIVE; FCOHb 0.9 % (0.0-3.9); FMetHb 0.3 % (0.0-1.5); FO2Hb 94.5 % (94-97); PATIENT TEMPERATURE 37.4; PEEP 12 cm H2O; RESPIRATORY RATE 24 b/min; TIDAL VOLUME 400 mL; TOTAL HEMOGLOBIN 12.8 G/dl (12.0-16.0)
--- NOTE | 2021-06-12 15:52 | NUR ---
Transferred pt to ICU, as ordered by 1430. Report given to receiving nurse.
[2021-06-12] MEDS: propofol 1000mg/100ml bottle 100 ML IV SCH ×2 (16:33→20:53)
[2021-06-12] MEDS: FENTANYL-0.9 % NACL/PF 100 ML IV PRN (16:36)
[2021-06-12] MEDS: NORepinephrine 8mg/ 250ml NS 250 ML IV SCH (16:45)
[2021-06-12 17:41] LABS: ABG BASE EXCESS 2.2 mmol/L (-2.0-2.0); ABG HCO3 31.7 mmol/L (22.0-26.0); ABG OXYGEN SATURATION 86.4 % (94-97); ABG PO2 (T) 57.6 mmHg (75.0-100.0); ALLEN'S TEST POSITIVE; FCOHb 1.2 % (0.0-3.9); FMetHb 0.3 % (0.0-1.5); FO2Hb 85.1 % (94-97); PATIENT TEMPERATURE 37.5; PEEP 10 cm H2O; RESPIRATORY RATE 30 b/min; TIDAL VOLUME 325 mL
--- NOTE | 2021-06-12 18:35 | NUR ---
Patient in room CICU 2016. I have received report from PATIENCE Nazario and had the opportunity to ask questions and assume patient care.
--- NOTE | 2021-06-12 19:09 | NUR ---
End of Shift Patient report given to night RN. Patient is not in restraints. Patient is stable on the ventilator. came by to visit and was updated. Plans, needed tasks and updates are conveyed to oncoming RN. I'm unsure if order for sedative orders were put in oddly or if there is a software issue with [employer], but when I went to chart my IV titrations, there is no rate dose field to appropriately chart; it only has mL/hr for infusion rate. mammographer notified. When I give handoff of care, the patient is on 25 mcg of Fentanyl, 20 mcg of Prop, and I turned the Levophed off at 1730. Upon entry in the room, night RN changed Fentanyl to 50 mcg of Fentanyl.
[2021-06-12] MEDS: furosemide 40mg/4ml inj IV SCH (20:00)
--- NOTE | 2021-06-12 20:03 | NUR ---
Dr. Roa on Telemedicine computer. Reviewed current patient condition, reviewed labs, and current ventilator settings and ABG. Needing order for OG tube, waiting on dietary consult for tube feed per MD start tube feed tomorrow. Discussed duplicate order for Lasix 40mg IV for 1999. Patient received Lasix 40mg at 1638 today. Per MD hold 1999 dose of Lasix. Discussed current sedation order to add Versed as ordered to patients sedation to attempt to have patient more synchronous with ventilator. Order to prone 16 hours and supine 8 hours given. Repeat ABG to be completed 1 hour after proning. Patient needs to have increased synchrony with ventilator before placing prone per MD.
[2021-06-12] MEDS: midazolam 100mg in NS 100ml 100 ML IV PRN (20:26)
[2021-06-12 22:38] LABS: SODIUM,URINE RANDOM < 15 MEQ/L
[2021-06-12 22:53] LABS: OSMOLALITY UA 321 MOSM/K (50-1400)
--- NOTE | 2021-06-12 23:15 | NUR ---
[address] PRONE. Required increased sedation, patient peak pressure on ventilator, RT called to assist, charge nurse at bedside as well. After increased sedation and additional propping with pillows patient tolerating well.
[2021-06-13] VITALS (36 sets, daily range): BP systolic 80–123; BP diastolic 36–61
[2021-06-13] MEDS: methylPREDNISolone sod succ/PF 40mg inj. IV SCH ×3 (00:20→15:57)
--- NOTE | 2021-06-13 00:34 | NUR ---
Patient with rings to left 4th and 5th fingers, unable to remove at this time. circulation remains present distal to the rings will continue to monitor and attempt to remove. One ring removed from right hand and placed in labeled container and placed with patient belongings in bedside dresser.
--- NOTE | 2021-06-13 00:50 | NUR ---
Problems reprioritized. Patient report given, questions answered & plan of care reviewed with PATIENCE Redmond.
[2021-06-13] MEDS: propofol 1000mg/100ml bottle 100 ML IV SCH ×6 (01:32→23:06)
[2021-06-13 01:44] LABS: ABG HCO3 22.5 mmol/L (22.0-26.0); ABG OXYGEN SATURATION 96.6 % (94-97); ABG PCO2 (T) 63.8 mmHg (32.0-45.0); ABG PO2 (T) 100.5 mmHg (75.0-100.0); ALLEN'S TEST Modified; FCOHb 0.6 % (0.0-3.9); FMetHb 0.4 % (0.0-1.5); FO2Hb 95.6 % (94-97); PATIENT TEMPERATURE 36.5; PEEP 10 cm H2O; RESPIRATORY RATE 30 b/min; TIDAL VOLUME 325 mL; TOTAL HEMOGLOBIN 12.5 G/dl (12.0-16.0)
[2021-06-13] MEDS ORDERED: fentaNYL/PF 50MCG/1 ML 2ML syringe IV ONE (02:00)
[2021-06-13] MEDS ORDERED: rocuronium 10mg/ml inj IV ONE (02:00)
--- NOTE | 2021-06-13 02:00 | NUR ---
We rounded on pt, Pt was peak pressuring at 46 continuously throughout the night. Pt is currently sedated on Fentanyl, Propofol, Versed and also has levo and NS running. Dr. Roa ordered rocuronium 50mg and Fentanyl 50mcg's to be given once IV push. Vent setting currently :A/C PRVC Fio2: 80%, Tidal volume:325, R:30 Peep:10. No changes have been made to vent.
[2021-06-13] MEDS: insulin regular, human U-100 3ml vial - multi-dose SQ SCH ×3 (02:26→14:30)
[2021-06-13] MEDS: NORepinephrine 8mg/ 250ml NS 250 ML IV SCH ×3 (02:39→18:23)
--- NOTE | 2021-06-13 04:00 | NUR ---
We rounded on Pt with Dr. Estrada. Pt has a peak pressure of 46. Sean changed vent settings to A/C VC: Fio2:70, Tidal volume:350, Rate:35 Flow:30 and peep:8. Will continue to monitor and call Dr. Estrada with results.
[2021-06-13 04:20] LABS: ABG BASE EXCESS -1.4 mmol/L (-2.0-2.0); ABG HCO3 30.2 mmol/L (22.0-26.0); ABG OXYGEN SATURATION 95.5 % (94-97); ABG PCO2 (T) 90.7 mmHg (32.0-45.0); ABG PO2 (T) 85.1 mmHg (75.0-100.0); ALLEN'S TEST Modified; FMetHb 0.4 % (0.0-1.5); FO2Hb 94.2 % (94-97); PATIENT TEMPERATURE 36.4; PEEP 10 cm H2O; RESPIRATORY RATE 30 b/min; TIDAL VOLUME 325 mL
[2021-06-13] MEDS: midazolam 100mg in NS 100ml 100 ML IV PRN ×2 (05:01→14:59)
--- NOTE | 2021-06-13 05:30 | NUR ---
Called Dr. Estrada with results. Vent settings stay unchanged.
[2021-06-13 05:39] LABS: ABG BASE EXCESS -3.1 mmol/L (-2.0-2.0); ABG HCO3 26.8 mmol/L (22.0-26.0); ABG OXYGEN SATURATION 92.3 % (94-97); ABG PO2 (T) 66.5 mmHg (75.0-100.0); ALLEN'S TEST Modified; FMetHb 0.3 % (0.0-1.5); FO2Hb 91.1 % (94-97); PATIENT TEMPERATURE 36.4; PEEP 8 cm H2O; RESPIRATORY RATE 35 b/min; TIDAL VOLUME 350 mL; TOTAL HEMOGLOBIN 13.2 G/dl (12.0-16.0)
[2021-06-13] MEDS: FENTANYL-0.9 % NACL/PF 100 ML IV PRN ×3 (05:56→20:13)
[2021-06-13 05:58] LABS: BASOPHILS % (AUTO) 0 % (0-1); EOSINOPHILS % (AUTO) 0 % (0-6); LYMPHOCYTES # (AUTO) 0.3 X10'3 (1.1-4.8)
[2021-06-13 06:02] LABS: HEMOGLOBIN 12.4 g/dl (12.0-16.0); LYMPHOCYTES % (AUTO) 1.9 % (21-51); MEAN CORPUSCULAR HGB CONC 33.6 g/dL (33.0-36.5); MEAN CORPUSCULAR VOLUME 95.2 FL (78-98); MEAN PLATELET VOLUME 9.3 FL (7.4-10.4); MONOCYTES # (AUTO) 0.2 X10'3 (0-0.9); MONOCYTES % (AUTO) 1.4 % (2-12); NEUTROPHILS # (AUTO) 14.7 X10'3 (1.8-7.7); NEUTROPHILS % (AUTO) 96.7 % (42-75); PLATELET COUNT 186 X10'3 (140-440); RED BLOOD COUNT 3.89 X10'6 (4.20-5.60); WHITE BLOOD COUNT 15.2 X10'3 (4.5-11.0)
[2021-06-13 06:11] LABS: D-DIMER 0.42 MG/L FEU (0-0.50)
[2021-06-13] MEDS: albuterol 2.5 MG/3 ML nebule NEB SCH ×2 (07:00→11:00)
[2021-06-13] MEDS: lisinopril 10 MG tablet PO SCH (07:07)
[2021-06-13 07:14] LABS: ALBUMIN 2.3 G/DL (3.4-5.0); ANION GAP 1 (8-16); BLOOD UREA NITROGEN 42 MG/DL (7-18); BUN/CREATININE RATIO 61.8 (6.6-38.0); C-REACTIVE PROTEIN 4.48 MG/DL (0.0-0.5); CALCIUM 9.1 MG/DL (8.5-10.1); CHLORIDE 92 MMOL/L (99-107); CREATININE 0.68 MG/DL (0.40-0.90); GLUCOSE 316 MG/DL (70-104); MAGNESIUM 2.3 MG/DL (1.5-2.4); SODIUM 123 MMOL/L (135-145); TOTAL CARBON DIOXIDE 30.1 MMOL/L (24-32); TRIGLYCERIDES 93 MG/DL (20-135); eGFR 84 ML/MIN
[2021-06-13 07:23] LABS: OSMOLALITY 291 MOSM/K (280-300)
[2021-06-13 07:24] LABS: POTASSIUM 6.2 MMOL/L (3.5-5.1)
[2021-06-13] MEDS: furosemide 40mg/4ml inj IV SCH (07:26)
[2021-06-13] MEDS: guaiFENesin ER 600mg tablet PO SCH ×2 (07:26→20:00)
[2021-06-13] MEDS: ipratropium/albuterol 3ml nebule NEB SCH ×5 (07:36→22:42)
[2021-06-13] MEDS: nystatin 500,000 unit/5ML UD oral suspension PO SCH ×3 (08:00→22:25)
[2021-06-13] MEDS ORDERED: fat emulsion IV bag 250 ML IV SCH (08:00)
[2021-06-13] MEDS ORDERED: sodium polystyrene sulfonate 15gm/60ml oral suspension PO ONE (08:00)
[2021-06-13] MEDS: lactose-reduced food (Ensure Enlive) - 237ml bottle PO SCH (08:00)
[2021-06-13] MEDS ORDERED: MVI, adult No.4 with vit. K 10 ML in dextrose 5% water 500ml 500 ML IV SCH ×2 (08:00)
[2021-06-13] MEDS ORDERED: pantoprazole 40MG/NS 100ML BAG 100 ML IV SCH (08:00)
[2021-06-13] MEDS: K and/or MAG REPLACEMENT MC SCH ×2 (08:05→20:00)
[2021-06-13] MEDS ORDERED: TOLVAPTAN 30 MG TABLET PO ONE (08:15)
[2021-06-13] MEDS: enoxaparin 40mg/0.4ml syringe SQ SCH ×2 (08:22→20:00)
[2021-06-13] MEDS: sodium chloride 1gm tablet PO SCH (08:51)
[2021-06-13] MEDS: normal saline 1000ml 1,000 ML IV SCH (09:25)
[2021-06-13 10:28] LABS: POTASSIUM 6.1 MMOL/L (3.5-5.1)
--- NOTE | 2021-06-13 12:19 | NUR ---
TF consult: Pt transferred to critical care and required intubation. Per MD patient to transition to TF and wean TPN as pt now with an OGT in place. Noted pt receiving Propofol at 2.286 mL/hr providing 60 kcal/day, TF recommendations have been adjusted accordingly, see below. Recommend no water flushes at this time in view of hyponatremia. Pt receiving routine NS. LBM /. Will continue to follow closely. Recommendations: 1. Given Propofol at 2.286 mL/hr (60 kcal/day), continuous Vital AF with 73 mL/hr goal to provide 1752 mL total volume/day, 2102 kcal, 131 g protein, and 1421 mL water 2. As TF increases wean continuous TPN via PICC line using Clinimix-E 5/20 at 80ml/hr goal w/ separate 250ml 20% intralipids to run for 12 hours /Sat at 20.83ml/hr. In total; to provide 1920ml volume/day, 96g AA, 384g DEX (3.51 mg/kg/min dext load), and avg 1833 kcal/day. 3. No water flush at this time in view of hyponatremia 4. PALB q Saturday/ 5. Daily scaled wts 6. Routine bowel care; utilize PRN bowel care given previous constipation 7. Monitor need for DM education once stable following official DM dx by physician; A1c 6.8% with no PMH DM Addendum: 06/13/21 at [address] Amended: Links added. Addendum: 06/13/21 at [address] TF GOAL RATE CORRECTION: 1. Given Propofol at 2.286 mL/hr (60 kcal/day), continuous Vital AF with 70 mL/hr goal to provide 1680 mL total volume/day, 2016 kcal, 126 g protein, and 1362 mL water
[2021-06-13 15:08] LABS: ALBUMIN 2.2 G/DL (3.4-5.0); ANION GAP 5 (8-16); BLOOD UREA NITROGEN 48 MG/DL (7-18); CALCIUM 8.9 MG/DL (8.5-10.1); CHLORIDE 94 MMOL/L (99-107); GLUCOSE 164 MG/DL (70-104); SODIUM 125 MMOL/L (135-145); TOTAL CARBON DIOXIDE 25.7 MMOL/L (24-32); eGFR 54 ML/MIN
[2021-06-13] MEDS ORDERED: albuterol 2.5 MG/3 ML nebule CONTNEB STA (16:09)
[2021-06-13] MEDS: sodium chloride 0.45% 1,000 ML IV SCH (16:24)
[2021-06-13 18:07] LABS: HEMOGLOBIN 10.8 g/dl (12.0-16.0); MEAN CORPUSCULAR HEMOGLOBIN 31.1 PG (27.0-31.0); MEAN CORPUSCULAR HGB CONC 32.7 g/dL (33.0-36.5); MEAN CORPUSCULAR VOLUME 95.1 FL (78-98); MEAN PLATELET VOLUME 9.8 FL (7.4-10.4); PLATELET COUNT 202 X10'3 (140-440); RED BLOOD COUNT 3.47 X10'6 (4.20-5.60); RED CELL DISTRIBUTION WIDTH 14.9 % (11.5-14.5); WHITE BLOOD COUNT 15.4 X10'3 (4.5-11.0)
--- NOTE | 2021-06-13 19:00 | NUR ---
1899 Received patient from ongoing RN. Patient is sedated with bloody nose and face. Intubated on AC mode of FIO2 of 70% +8 R of 35 TD of 350, with O2 sats of 90%. ST noted on the compliance monitor. OGT to feeds running at 30. Patient on sedation (Versed, Fentanyl, propofol ) as well as pressors, (Levophed). Pruitt to gravity with no drainage. No signs and symptoms of distress noted. Will continue to monitor patient's status. 1999 Assessed patient's OGT tube 200CC of bloody drainage noted. Placed OGT to LWIS 300cc of bloody drainage noted. Notified hot metal charger. Ana hopson STAT. Notified Dr. Lopez patient's status. Awaiting on coagulation results as well as new hemoglobin results. Telephone order to stop Lovenox, modify protonix to BID. Place prone on hold due to unknown bleeding. [address] Lopez patient's status, discussed lab results. K of 6.2 , telephone order of 10 units of insulin, D50 amp, Calcium gluconate given. Notified MD of no urine output, telephone order of 1L LR given. Also patient is on high dose of Levophed, order of vasopressin given. Addendum: 06/14/21 at 0514 by Maylin Conti RN 2300 Patient resting responding to interventions slowly. No signs and symptoms of distress noted. Will continue to monitor patient's status. 429 rounded on patient, aware of patient labs and Na of 120. MD will discuss patient's status with AM MD. Will continue to monitor patient's status.
[2021-06-13 19:54] LABS: ABG BASE EXCESS -9.3 mmol/L (-2.0-2.0); ABG HCO3 19.1 mmol/L (22.0-26.0); ABG OXYGEN SATURATION 92.1 % (94-97); ABG PCO2 (T) 50.7 mmHg (32.0-45.0); ABG PO2 (T) 64.4 mmHg (75.0-100.0); FCOHb 0.7 % (0.0-3.9); FMetHb 0.3 % (0.0-1.5); FO2Hb 91.2 % (94-97); PATIENT TEMPERATURE 36.4; PEEP 8 cm H2O; RESPIRATORY RATE 35 b/min; TIDAL VOLUME 350 mL; TOTAL HEMOGLOBIN 12.1 G/dl (12.0-16.0)
[2021-06-13] MEDS: mineral oil/petrolatum ophthal oint EACHEYE SCH (20:00)
[2021-06-13] MEDS ORDERED: enoxaparin 40mg/0.4ml syringe SUBCUT SCH (20:00)
[2021-06-13 20:08] LABS: BASOPHILS % (AUTO) 0.1 % (0-1); EOSINOPHILS % (AUTO) 0 % (0-6); HEMATOCRIT 35.3 % (35.0-45.0); HEMOGLOBIN 11.6 g/dl (12.0-16.0); LYMPHOCYTES # (AUTO) 0.3 X10'3 (1.1-4.8); MEAN CORPUSCULAR HEMOGLOBIN 31.6 PG (27.0-31.0); MEAN CORPUSCULAR HGB CONC 32.9 g/dL (33.0-36.5); MEAN CORPUSCULAR VOLUME 96.2 FL (78-98); MEAN PLATELET VOLUME 9.2 FL (7.4-10.4); MONOCYTES # (AUTO) 0.6 X10'3 (0-0.9); MONOCYTES % (AUTO) 3.5 % (2-12); NEUTROPHILS # (AUTO) 15.8 X10'3 (1.8-7.7); NEUTROPHILS % (AUTO) 94.4 % (42-75); PLATELET COUNT 209 X10'3 (140-440); RED BLOOD COUNT 3.67 X10'6 (4.20-5.60); WHITE BLOOD COUNT 16.7 X10'3 (4.5-11.0)
[2021-06-13 20:21] LABS: APTT 41 SECONDS (22-32); D-DIMER 0.36 MG/L FEU (0-0.50)
[2021-06-13 20:31] LABS: PLATELET COUNT 209 X10'3 (140-440)
[2021-06-13 20:33] LABS: ALANINE AMINOTRANSFERASE 89 U/L (12-78); ALBUMIN 2.2 G/DL (3.4-5.0); ALBUMIN/GLOBULIN RATIO 0.7 (1.1-1.5); ALKALINE PHOSPHATASE 82 IU/L (46-116); ANION GAP 5 (8-16); ASPARTATE AMINO TRANSFERASE 48 U/L (10-37); BILIRUBIN,TOTAL 0.2 MG/DL (0.1-1.0); BLOOD UREA NITROGEN 50 MG/DL (7-18); CALCIUM 8.5 MG/DL (8.5-10.1); CHLORIDE 95 MMOL/L (99-107); CREATININE 1.39 MG/DL (0.40-0.90); GLUCOSE 228 MG/DL (70-104); MAGNESIUM 2.1 MG/DL (1.5-2.4); PHOSPHORUS 6.2 MG/DL (2.3-4.5); SODIUM 125 MMOL/L (135-145); TOTAL CARBON DIOXIDE 24.7 MMOL/L (24-32); TOTAL PROTEIN 5.2 G/DL (6.4-8.2); eGFR 37 ML/MIN
[2021-06-13 20:39] LABS: POTASSIUM 6.2 MMOL/L (3.5-5.1)
[2021-06-13] MEDS: NORepinephrine inj. 32 MG in normal saline 250ml IV soln 218 ML IV SCH (20:45)
[2021-06-13] MEDS: pantoprazole 40MG/NS 100ML BAG 100 ML IV SCH (20:53)
[2021-06-13 21:14] LABS: BURR CELLS 1+; NUCLEATED RED BLOOD CELLS 2 /100WBC (0-0); PLATELET ESTIMATE NORMAL; TOTAL CELLS COUNTED 100
[2021-06-13 21:15] LABS: ELLIPTOCYTES 1+; LARGE PLATELETS FEW
[2021-06-13 21:16] LABS: POLYCHROMASIA 1+
[2021-06-13] MEDS ORDERED: ringers solution, lacted 1,000 ML IV ONE (21:40)
[2021-06-13] MEDS ORDERED: dextrose 50%-water 50ml dispensing syringe IV ONE (21:40)
[2021-06-13] MEDS ORDERED: insulin regular, human U-100 3ml vial - multi-dose IV ONE (21:40)
[2021-06-13] MEDS: vasopressin inj. 40 UNIT in dextrose 5%-water 50ml 38 ML IV SCH (22:25)
[2021-06-13] MEDS: CALCIUM GLUC 1gm/50ml NACL,iso 50 ML IV SCH ×2 (22:28→23:10)
[2021-06-14] VITALS (22 sets, daily range): BP systolic 98–133; BP diastolic 36–51
[2021-06-14] MEDS: propofol 1000mg/100ml bottle 100 ML IV SCH (00:05)
[2021-06-14] MEDS: methylPREDNISolone sod succ/PF 40mg inj. IV SCH ×2 (00:05→08:12)
[2021-06-14] MEDS: FENTANYL-0.9 % NACL/PF 100 ML IV PRN ×2 (00:06→11:18)
[2021-06-14] MEDS: midazolam 100mg in NS 100ml 100 ML IV PRN ×2 (00:06→11:18)
[2021-06-14] MEDS: mineral oil/petrolatum ophthal oint EACHEYE SCH ×3 (02:08→14:15)
[2021-06-14] MEDS: sodium chloride 0.45% 1,000 ML IV SCH (02:09)
[2021-06-14] MEDS: vasopressin inj. 40 UNIT in dextrose 5%-water 50ml 38 ML IV SCH (03:10)
[2021-06-14] MEDS: NORepinephrine inj. 32 MG in normal saline 250ml IV soln 218 ML IV SCH (03:11)
[2021-06-14] MEDS: ipratropium/albuterol 3ml nebule NEB SCH ×4 (03:26→15:08)
[2021-06-14 03:38] LABS: D-DIMER 0.34 MG/L FEU (0-0.50)
[2021-06-14 03:51] LABS: ANION GAP 10 (8-16); BLOOD UREA NITROGEN 48 MG/DL (7-18); BUN/CREATININE RATIO 34.5 (6.6-38.0); C-REACTIVE PROTEIN 2.63 MG/DL (0.0-0.5); CALCIUM 7.5 MG/DL (8.5-10.1); CHLORIDE 91 MMOL/L (99-107); CREATININE 1.39 MG/DL (0.40-0.90); GLUCOSE 158 MG/DL (70-104); MAGNESIUM 1.9 MG/DL (1.5-2.4); POTASSIUM 5.7 MMOL/L (3.5-5.1); TOTAL CARBON DIOXIDE 18.9 MMOL/L (24-32); eGFR 37 ML/MIN
[2021-06-14 03:52] LABS: ALBUMIN 1.8 G/DL (3.4-5.0)
[2021-06-14 04:03] LABS: ABG HCO3 22.3 mmol/L (22.0-26.0); ABG OXYGEN SATURATION 95.9 % (94-97); ABG PCO2 (T) 62.9 mmHg (32.0-45.0); ABG PO2 (T) 78.8 mmHg (75.0-100.0); FCOHb 0.3 % (0.0-3.9); FMetHb 0.2 % (0.0-1.5); FO2Hb 95.4 % (94-97); PATIENT TEMPERATURE 36.5; PEEP 10 cm H2O; RESPIRATORY RATE 35 b/min; TIDAL VOLUME 350 mL; TOTAL HEMOGLOBIN 11.3 G/dl (12.0-16.0)
[2021-06-14 04:04] LABS: SODIUM 120 MMOL/L (135-145)
[2021-06-14] MEDS ORDERED: furosemide 40mg/4ml inj IV ONE (05:15)
[2021-06-14] MEDS ORDERED: sodium chloride 3% IV.soln 100 ML IV SCH ×2 (07:45→08:15)
[2021-06-14] MEDS: enoxaparin 40mg/0.4ml syringe SQ SCH (08:00)
[2021-06-14] MEDS: K and/or MAG REPLACEMENT MC SCH (08:00)
[2021-06-14] MEDS: nystatin 500,000 unit/5ML UD oral suspension PO SCH ×2 (08:00→13:00)
[2021-06-14] MEDS: pantoprazole 40MG/NS 100ML BAG 100 ML IV SCH (08:46)
[2021-06-14] MEDS: insulin regular, human U-100 3ml vial - multi-dose SQ SCH ×2 (09:00→15:42)
[2021-06-14 10:00] LABS: EOSINOPHILS % (AUTO) 0 % (0-6); HEMATOCRIT 28.7 % (35.0-45.0); HEMOGLOBIN 9.5 g/dl (12.0-16.0); LYMPHOCYTES # (AUTO) 0.7 X10'3 (1.1-4.8); MEAN PLATELET VOLUME 9.3 FL (7.4-10.4)
[2021-06-14 10:02] LABS: BASOPHILS % (AUTO) 0.2 % (0-1); LYMPHOCYTES % (AUTO) 4.3 % (21-51); MEAN CORPUSCULAR HEMOGLOBIN 31.8 PG (27.0-31.0); MEAN CORPUSCULAR HGB CONC 33.1 g/dL (33.0-36.5); MEAN CORPUSCULAR VOLUME 96.2 FL (78-98); MONOCYTES # (AUTO) 0.9 X10'3 (0-0.9); MONOCYTES % (AUTO) 5.3 % (2-12); NEUTROPHILS # (AUTO) 15.2 X10'3 (1.8-7.7); NEUTROPHILS % (AUTO) 90.2 % (42-75); PLATELET COUNT 206 X10'3 (140-440); RED BLOOD COUNT 2.98 X10'6 (4.20-5.60); RED CELL DISTRIBUTION WIDTH 15.2 % (11.5-14.5); WHITE BLOOD COUNT 16.8 X10'3 (4.5-11.0)
[2021-06-14 11:15] LABS: ALANINE AMINOTRANSFERASE 70 U/L (12-78); ALBUMIN/GLOBULIN RATIO 0.7 (1.1-1.5); ALKALINE PHOSPHATASE 72 IU/L (46-116); ANION GAP 9 (8-16); ASPARTATE AMINO TRANSFERASE 24 U/L (10-37); BILIRUBIN,TOTAL 0.3 MG/DL (0.1-1.0); BLOOD UREA NITROGEN 58 MG/DL (7-18); BUN/CREATININE RATIO 28.3 (6.6-38.0); CHLORIDE 93 MMOL/L (99-107); CREATININE 2.05 MG/DL (0.40-0.90); MAGNESIUM 2.2 MG/DL (1.5-2.4); SODIUM 123 MMOL/L (135-145); TOTAL CARBON DIOXIDE 20.8 MMOL/L (24-32); TOTAL PROTEIN 4.7 G/DL (6.4-8.2); eGFR 24 ML/MIN
[2021-06-14 11:18] LABS: GLUCOSE 201 MG/DL (70-104)
[2021-06-14 11:20] LABS: POTASSIUM 7.1 MMOL/L (3.5-5.1)
[2021-06-14] MEDS: bisacodyl 10mg suppository rectal RC SCH (12:15)
[2021-06-14] MEDS ORDERED: sodium bicarbonate (8.4%) 1 mEq/ml syringe IV ONE (12:15)
[2021-06-14] MEDS ORDERED: insulin regular, human U-100 3ml vial - multi-dose IV ONE (12:15)
[2021-06-14] MEDS ORDERED: dextrose 50%-water 50ml dispensing syringe IV ONE (12:15)
[2021-06-14] MEDS ORDERED: calcium gluconate inj. 1 GM in normal saline 100ml IV soln 100 ML IV ONE (12:15)
[2021-06-14] MEDS ORDERED: sodium polystyrene sulfonate 15gm/60ml oral suspension PR ONE (12:15)
[2021-06-14 12:16] LABS: NUCLEATED RED BLOOD CELLS 1 /100WBC (0-0); PLATELET ESTIMATE NORMAL; TOTAL CELLS COUNTED 100
[2021-06-14 12:17] LABS: BURR CELLS FEW; POLYCHROMASIA 1+
[2021-06-14] MEDS ORDERED: CALCIUM GLUC 1gm/50ml NACL,iso 50 ML IV ONE (12:21)
[2021-06-14] MEDS ORDERED: guaiFENesin 200 MG/10 ML oral syrup UD cup PO SCH (14:00)
[2021-06-14] MEDS ORDERED: LORazepam 2 mg/ml vial IV PRN (16:10)
[2021-06-14] MEDS ORDERED: morphine 10mg/ml inj. IV PRN (16:10)
[2021-06-14] MEDS ORDERED: fentaNYL/PF 50MCG/1 ML 2ML syringe ONE (16:45)
[2021-06-14] MEDS ORDERED: MIDAZolam 1 MG/ML 5ML VIAL ONE (16:46)
[2021-06-14] MEDS ORDERED: LIDOcaine Viscous 15ml cup ONE (16:46)
--- NOTE | 2021-06-14 18:03 | NUR ---
Pt. code status changed to DNRCC. Pt. was extubated @17:05 and @ 17:22 with family at bedside.
== END 2021-06-14 17:22 | DRG 208 ==
LOC: ER 16:51 → ED HOLD 18:40 → ORTHO 4S 21:40 → CICU 2S 06-12 14:20
PROVIDERS: ADMIT Family Medicine; ATTEND Internal Medicine
PROC: XW033E5 Introduction of Remdesivir Anti-infective into Peripheral Vein, Percutaneous Approach, New Technology Group 5 (ICD-10-PCS; principal; 2021-05-19)
PROC: 5A0945A Assistance with Respiratory Ventilation, 24-96 Consecutive Hours, High Flow/Velocity Cannula (ICD-10-PCS; 2021-05-20)
PROC: XW033H5 Introduction of Tocilizumab into Peripheral Vein, Percutaneous Approach, New Technology Group 5 (ICD-10-PCS; 2021-05-22)
PROC: B32T1ZZ Computerized Tomography (CT Scan) of Left Pulmonary Artery using Low Osmolar Contrast (ICD-10-PCS; 2021-05-23)
PROC: B3201ZZ Computerized Tomography (CT Scan) of Thoracic Aorta using Low Osmolar Contrast (ICD-10-PCS; 2021-05-23)
PROC: B32S1ZZ Computerized Tomography (CT Scan) of Right Pulmonary Artery using Low Osmolar Contrast (ICD-10-PCS; 2021-05-23)
PROC: 5A09357 Assistance with Respiratory Ventilation, Less than 24 Consecutive Hours, Continuous Positive Airway Pressure (ICD-10-PCS; 2021-05-24)
PROC: 5A0935A Assistance with Respiratory Ventilation, Less than 24 Consecutive Hours, High Flow/Velocity Cannula (ICD-10-PCS; 2021-05-24)
PROC: 5A0935A Assistance with Respiratory Ventilation, Less than 24 Consecutive Hours, High Flow/Velocity Cannula (ICD-10-PCS; 2021-05-25)
PROC: 5A0935A Assistance with Respiratory Ventilation, Less than 24 Consecutive Hours, High Flow/Velocity Cannula (ICD-10-PCS; 2021-05-26)
PROC: 5A0935A Assistance with Respiratory Ventilation, Less than 24 Consecutive Hours, High Flow/Velocity Cannula (ICD-10-PCS; 2021-05-27)
PROC: 5A0935A Assistance with Respiratory Ventilation, Less than 24 Consecutive Hours, High Flow/Velocity Cannula (ICD-10-PCS; 2021-05-28)
PROC: 5A0935A Assistance with Respiratory Ventilation, Less than 24 Consecutive Hours, High Flow/Velocity Cannula (ICD-10-PCS; 2021-05-29)
PROC: 5A0935A Assistance with Respiratory Ventilation, Less than 24 Consecutive Hours, High Flow/Velocity Cannula (ICD-10-PCS; 2021-05-30)
PROC: 5A0945A Assistance with Respiratory Ventilation, 24-96 Consecutive Hours, High Flow/Velocity Cannula (ICD-10-PCS; 2021-05-31)
PROC: 5A0945A Assistance with Respiratory Ventilation, 24-96 Consecutive Hours, High Flow/Velocity Cannula (ICD-10-PCS; 2021-06-02)
PROC: 5A09457 Assistance with Respiratory Ventilation, 24-96 Consecutive Hours, Continuous Positive Airway Pressure (ICD-10-PCS; 2021-06-04)
PROC: 5A0945A Assistance with Respiratory Ventilation, 24-96 Consecutive Hours, High Flow/Velocity Cannula (ICD-10-PCS; 2021-06-06)
PROC: 5A09357 Assistance with Respiratory Ventilation, Less than 24 Consecutive Hours, Continuous Positive Airway Pressure (ICD-10-PCS; 2021-06-08)
PROC: 5A0935A Assistance with Respiratory Ventilation, Less than 24 Consecutive Hours, High Flow/Velocity Cannula (ICD-10-PCS; 2021-06-09)
PROC: 02HV33Z Insertion of Infusion Device into Superior Vena Cava, Percutaneous Approach (ICD-10-PCS; 2021-06-09)
PROC: B548ZZA Ultrasonography of Superior Vena Cava, Guidance (ICD-10-PCS; 2021-06-09)
PROC: 5A0935A Assistance with Respiratory Ventilation, Less than 24 Consecutive Hours, High Flow/Velocity Cannula (ICD-10-PCS; 2021-06-10)
PROC: 5A0935A Assistance with Respiratory Ventilation, Less than 24 Consecutive Hours, High Flow/Velocity Cannula (ICD-10-PCS; 2021-06-11)
PROC: 5A1945Z Respiratory Ventilation, 24-96 Consecutive Hours (ICD-10-PCS; 2021-06-12)
PROC: 0BH17EZ Insertion of Endotracheal Airway into Trachea, Via Natural or Artificial Opening (ICD-10-PCS; 2021-06-12)
PROC: 5A09357 Assistance with Respiratory Ventilation, Less than 24 Consecutive Hours, Continuous Positive Airway Pressure (ICD-10-PCS; 2021-06-12)
DX: U07.1 COVID-19 (principal); N17.0 Acute kidney failure with tubular necrosis; J12.82 Pneumonia due to coronavirus disease 2019; J80 Acute respiratory distress syndrome; E46 Unspecified protein-calorie malnutrition; K92.2 Gastrointestinal hemorrhage, unspecified; Z16.23 Resistance to quinolones and fluoroquinolones; E22.2 Syndrome of inappropriate secretion of antidiuretic hormone; N39.0 Urinary tract infection, site not specified; E87.2 Acidosis; B96.20 Unspecified Escherichia coli [E. coli] as the cause of diseases classified elsewhere; F41.9 Anxiety disorder, unspecified; Z85.3 Personal history of malignant neoplasm of breast; Z68.27 Body mass index [BMI] 27.0-27.9, adult; Z79.899 Other long term (current) drug therapy; E87.5 Hyperkalemia; Z51.5 Encounter for palliative care
CPT/HCPCS: 36415; 36569; 36600; 70450; 71045; 71260; 71275; 74018; 76942; 80048; 80053; 81001; 82570; 82728; 82803; 82947; 82948; 83036; 83605; 83615; 83735; 83880; 83930; 83935; 84100; 84132; 84134; 84145; 84300; 84478; 84560; 85007; 85018; 85025; 85027; 85379; 85384; 85610; 85730; 86140; 86885; 86900; 86901; 87040; 87070; 87077; 87081; 87088; 87186; 87635; 92508; 92616; 93005; 93970; 94002; 94003; 94640; 94660; 94760; 94799; 97110; 97116; 97161; 97530; 99285; C9113; C9803; G0378; J0456; J0610; J0696; J1100; J1650; J1815; J1940; J2060; J2250; J2274; J2405; J2704; J2920; J2930; J3010; J3262; J3486; J3490; J7030; J7050; J7060; J7120; J7131; J8540; Q9967